=== PATIENT | male | born 1980 | race Caucasian/White ===

== ENCOUNTER 2019-11-11 12:59 | Outpatient (CLI) | payer OTHER, SELFPAY ==
--- NOTE | ~2019-11-11 | XR_ITS ---
XR knee LT 2V 11/11/2019 13:24 Indication: Left knee pain Procedure: 2 views left knee Comparison: No prior studies for comparison. Findings: There is anatomic alignment. No fracture, subluxation or dislocation. No joint space narrow ing. No significant joint effusion. No radiopaque foreign bodies. Impression: 1: No significant bone or joint abnormality. Reviewed, dictated and finalized at location A. Impression: 1: No significant bone or joint abnormality.
[2019-11-11 13:38] LABS: Hematocrit 46.5 % (42.0-52.0); Hemoglobin 16.2 g/dL (14.0-18.0); Mean Corpuscular HGB Conc 34.8 g/dl (32-36); Mean Corpuscular Hemoglobin 29.5 pg (26-34); Mean Corpuscular Volume 84.5 fl (80-100); Mean Platelet Volume 9.5 fl (7.4-10.4); Platelet Count Result 228 k/mm3 (150-375); Red Cell Distribution Width 12.6 % (11.5-14.5); White Blood Count 7.7 K/mm3 (4.5-10.0)
[2019-11-11 13:51] LABS: Blood Urea Nitrogen 19 mg/dL (9-20); Calcium 9.4 mg/dL (8.4-10.2); Carbon Dioxide 29 mmol/L (22-30); Chloride 104 mmol/L (98-107); Estimated Glomerular Filt Rate > 60; Glucose 93 mg/dL (75-110); Potassium 4.3 mmol/L (3.4-5.0); Sodium 139 mmol/L (137-145)
[2019-11-11 14:22] LABS: Thyroid Stimulating Hormone 0.749 uIU/mL (0.465-4.680)
[2019-11-14 10:47] LABS: Testosterone Total 277 ng/dL (250-1100)
== END 2019-11-11 13:00 | disposition home or self-care (01) ==
PROVIDERS: PCP Family Medicine; Visit Provider Physician Assistant Medical
DX: M25.562 Pain in left knee (principal); R53.82 Chronic fatigue, unspecified
CPT/HCPCS: 36415; 73560; 80048; 84403; 84443; 85027

== ENCOUNTER 2020-01-01 10:02 | Outpatient (CLI) | payer OTHER, SELFPAY ==
--- NOTE | ~2020-01-01 | MR_ITS ---
EXAMINATION: MR knee LT wo con DATE: 01/01/2020 10:58 INDICATION: Left knee pain TECHNIQUE: Magnetic resonance imaging (MRI) of the left knee was performed without intravenous contra st. Sequences included coronal PD-weighted FSE, coronal PD-weighted FS FSE, sagittal T2-weighted FSE , sagittal PD-weighted FS FSE and axial PD weighted fat saturated FSE. COMPARISON: None. FINDINGS: Medial compartment: Medial meniscus is normal. Articular cartilage is normal. There is a normal anatomic variant intramen iscal ligament extending from the anterior horn of the medial meniscus across intercondylar notch to the posterior horn of the lateral meniscus. Lateral compartment: Lateral meniscus is normal. Articular cartilage is normal. Patellofemoral compartment: Partial-thickness chondral fissure involving less than 50% the cartilage thickness without degenerati ve subarticular changes at the central aspect of the medial patellar facet. Patellofemoral cartilage is otherwise normal. Ligaments and tendons: Anterior and posterior cruciate ligaments are normal. The medial collateral ligament and fibular carla ateral ligament complex are normal. The extensor mechanism is normal. The visualized medial and later al hamstring tendons as well as the iliotibial band are normal. Fluid: Physiologic amount of fluid in the joint space. No loose osteochondral bodies identified. Small amoun t of fluid in the prepatellar bursa consistent with mild bursitis. Osseous/other: Normal marrow signal. No fracture or pathologic marrow replacing process. There is a medial plical ba nd which extends across the superomedial corner of the medial trochlea. There is mild edema in the ad jacent medial aspect of the superficial suprapatellar fat pad which can be seen with fat pad impingem ent syndrome. IMPRESSION: 1. Small partial-thickness tear at the medial patellar facet. 2. Mild prepatellar bursitis. 3. Mild edema in the medial aspect of the suprapatellar fat pad which could be related to fat pad imp ingement syndrome with an adjacent medial plical band. Reviewed, dictated and finalized at location A. IMPRESSION: 1. Small partial-thickness tear at the medial patellar facet. 2. Mild prepatellar bursitis. 3. Mild edema in the medial aspect of the suprapatellar fat pad which could be related to fat pad impingement syndrome with an adjacent medial plical band.
== END 2020-01-01 10:03 | disposition home or self-care (01) ==
LOC: ANHIMG 10:03
PROVIDERS: PCP Family Medicine; Visit Provider Family Medicine
DX: M70.42 Prepatellar bursitis, left knee (principal)
CPT/HCPCS: 73721

== ENCOUNTER 2020-02-02 13:19 | Outpatient (RCR) | payer OTHER, SELFPAY ==
--- NOTE | 2020-02-02 14:39 | PTOPEVAL ---
PHYSICAL THERAPY EVALUATION AND PLAN OF CARE 02-02-2020 The PT evaluation was completed for the diagnosis of L knee pain. He has good strength and flexibility of L hip and knee. The only activity that replicates his pain is kneeling on his L knee. There is tenderness with palpation over the lateral- inferior patella and inferior patellar tendon. At this time, further PT is not indicated for Matt. He has been educated to perform taping over patella, use of patellar tendon strap, with pain management techniques of ice, over the counter meds and rest PRN. Mr. Heath is to call for any further questions, or if there are changes in the next 4 weeks that require additional assessment. Thank you for referring Matt Heath Jr. to [facility]. Please review, sign, date and return this plan of care REINA. I agree with and certify that the following plan of care is medically necessary. Referring Physician Date Attending Provider: Dr. Tejinder Fofana *PT Outpatient Evaluation Start: 02/02/20 13:44 Document 02/02/20 13:35 PIA (Rec: 02/02/20 14:28 PIA [id number]) Therapy Assessment Status Assessment Status Assessment Status Evaluation Outpatient Past Medical History Past Medical History Source of Past Medical History Patient Neurological History Hx Migraine Yes: varies, up to a few times a month Cardiovascular History Hx Hypertension Yes: have had in past Hx Other Cardiac Disorders Yes: had heart monitor few yr ago some arrhythmia-not serious Respiratory History Hx Asthma Yes: as child Hx Chronic Obstructive Pulmonary Disease Yes: borderline, no treatment (COPD) for it now Gastrointestinal History Hx Gastrointestinal Disorders No Significant History Musculoskeletal History Hx Fractures Yes: hand Hx Other Musculoskeletal Disorders Yes: neck and R shoulder pain, low back pain intermittent Endocrine History Hx Endocrine Disorders No Significant History Evaluation Information Problem Diagnosis L knee pain Onset July 2019 Subjective Information gradual increase in knee pain, Query Text:As Reported By Patient/ doing more kneeling, then Family increased; Diagnostic Tests X-Rays For This Problem Yes: negative MRI For This Problem Yes: pre-patellar tendon bursitis;fat pad impingement syndrome, small partial thickness tear medial patellar facet Previous Treatments Previous Treatments For This Problem no previous PT Prior Level of Function Activity Level (Last 3 Months) 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
--- NOTE | 2020-03-11 14:47 | PCPTNOTE ---
PHYSICAL THERAPY DISCHARGE 03-11-2020 Attending Provider: Apollo Mortensen MD Patient:Matt Heath Jr. Date of :1980 Mr. Heath has not returned for any further treatments since the PT evaluation on 02/02/2020, for the diagnosis of L knee pain. Therefore, he will be discharged at this time. The goals were not assessed. [facility]. Please review, sign, date and return this discharge summary REINA. I have been updated about the patient's current status and I agree with discharge from the above service at this time. Referring Physician Date
== END 2020-03-14 15:13 | disposition home or self-care (01) ==
LOC: ANHPT 13:19
PROVIDERS: PCP Family Medicine; Visit Provider Family Medicine
DX: M25.562 Pain in left knee (principal)
CPT/HCPCS: 97161

== ENCOUNTER 2020-07-21 14:53 | Outpatient (CLI) | payer OTHER, SELFPAY ==
--- NOTE | ~2020-07-21 | XR_ITS ---
XR shoulder LT min 2V DATE: 07/21/2020 15:22 INDICATION: Left shoulder skin anesthesia TECHNIQUE: 4 views of left shoulder COMPARISON: None FINDINGS: No fracture or dislocation, periosteal reaction or bone destruction. Normal alignment at th e acromioclavicular and glenohumeral joints. No abnormal left shoulder soft tissue calcification. 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
--- NOTE | ~2020-07-21 | XR_ITS ---
XR hand RT min 3V DATE: 07/21/2020 15:22 INDICATION: Right hand pain TECHNIQUE: 3 views COMPARISON: None FINDINGS: No fracture or dislocation, periosteal reaction or bone destruction, joint space narrowing, chondrocalcinosis or erosive change is detected. IMPRESSION: Negative Reviewed, dictated and finalized at location B. 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
--- NOTE | ~2020-07-21 | XR_ITS ---
XR hand LT min 3V DATE: 07/21/2020 15:22 INDICATION: Left hand pain TECHNIQUE: 3 views COMPARISON: None FINDINGS: No fracture or dislocation, periosteal reaction or bone destruction. Joint spaces are prese rved. No erosive changes or chondrocalcinosis. IMPRESSION: Negative Reviewed, dictated and finalized at location B. 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
[2020-07-21 16:17] LABS: Uric Acid 4.7 mg/dL (3.5-8.5)
[2020-07-21 16:29] LABS: Erythrocyte Sedimentation Rate 8 mm/hr (0-20)
[2020-07-21 18:50] LABS: Rheumatoid Factor < 8.6 IU/ML (<12)
== END 2020-07-21 14:54 | disposition home or self-care (01) ==
PROVIDERS: PCP Family Medicine; Visit Provider Nurse Practitioner Family
DX: M79.643 Pain in unspecified hand (principal); M25.519 Pain in unspecified shoulder; R20.0 Anesthesia of skin; R20.2 Paresthesia of skin
CPT/HCPCS: 36415; 73030; 73130; 84550; 85652; 86038; 86430

== ENCOUNTER 2020-10-04 10:31 | Outpatient (CLI) | payer OTHER, SELFPAY ==
--- NOTE | ~2020-10-04 | XR_ITS ---
XR_CERV2-3V_CR DATE: 10/04/2020 10:45 INDICATION: Neck pain TECHNIQUE: AP, open-mouth, lateral views COMPARISON: None FINDINGS: There is straightening of the cervical spine. C1 and C2 are normally aligned and the odont oid process is intact. No fracture or dislocation, periosteal reaction or bone destruction is detect ed. No prevertebral soft tissue swelling. The cervical interspaces are preserved. IMPRESSION: Straightening of the cervical spine Reviewed, dictated and finalized at Location A. Reviewed, dictated and finalized at location B.
--- NOTE | ~2020-10-04 | XR_ITS ---
XR elbow LT min 3V DATE: 10/04/2020 10:45 INDICATION: Left elbow pain TECHNIQUE: 4 views COMPARISON: None FINDINGS: No fracture or dislocation or joint effusion. No periosteal reaction or bone destruction. IMPRESSION: Negative Reviewed, dictated and finalized at location B. IMPRESSION: Negative
== END 2020-10-04 10:32 | disposition home or self-care (01) ==
PROVIDERS: PCP Family Medicine; Visit Provider Nurse Practitioner Family
DX: M54.2 Cervicalgia (principal); M25.522 Pain in left elbow
CPT/HCPCS: 72040; 73080

== ENCOUNTER 2020-11-11 17:08 | Outpatient (CLI) | payer OTHER, SELFPAY ==
--- NOTE | ~2020-11-11 | MR_ITS ---
EXAMINATION: MR cervical spine wo con DATE: 11/11/2020 17:49 INDICATION: Anesthesia of skin with pain, numbness and tingling extending down the left arm TECHNIQUE: Magnetic resonance imaging (MRI) of the cervical spine was performed without intravenous c ontrast. Sequences included sagittal T2-weighted FSE, sagittal T2-weighted FS FSE, sagittal T1-weight ed FSE, axial MERGE and axial T2-weighted FSE. COMPARISON: None FINDINGS: Straightening of the normal cervical lordosis. Vertebral body heights are normal. Bone marrow signa l intensity is normal. Intervertebral disc heights are normal. Cord signal intensity is normal. Cervi rohit soft tissues are unremarkable. The following disc levels are specifically discussed: C2-C3: The disc does not extend beyond the endplate margin. There is no uncovertebral joint osteoarth ritis. There is mild left facet joint osteoarthritis. There is minimal left neural foraminal stenosis . There is no central canal stenosis. C3-C4: Disc is bulging. There is mild bilateral uncovertebral joint osteoarthritis. There is mild lef t and minimal right facet joint osteoarthritis. There is mild bilateral neural foraminal stenosis. Th ere is mild central canal stenosis. C4-C5: Disc is bulging. There is moderate bilateral uncovertebral joint osteoarthritis. There is mild to moderate left and mild right facet joint osteoarthritis. There is moderate to severe bilateral ne ural foraminal stenosis. There is mild central canal stenosis. C5-C6: Disc is mildly bulging. There is mild bilateral uncovertebral joint osteoarthritis. There is m ild bilateral facet joint osteoarthritis. There is minimal bilateral neural foraminal stenosis. There is mild central canal stenosis. C6-C7: Disc is mildly bulging. There is minimal bilateral uncovertebral joint osteoarthritis. There i s mild right and minimal left facet joint osteoarthritis. There is minimal left neural foraminal sten osis. There is mild central canal stenosis. C7-T1: Disc is bulging. There is moderate bilateral uncovertebral joint osteoarthritis. There is mild bilateral facet joint osteoarthritis. There is moderate bilateral, left greater than right neural fo raminal stenosis. There is mild central canal stenosis. IMPRESSION: 1. Mild cervical spondylosis most notable for moderate to severe bilateral neural foraminal stenosis at C4-C5. Reviewed, dictated and finalized at location A. IMPRESSION: 1. Mild cervical spondylosis most notable for moderate to severe bilateral neur al foraminal stenosis at C4-C5.
== END 2020-11-11 17:09 | disposition home or self-care (01) ==
LOC: ANHIMG 17:09
PROVIDERS: PCP Family Medicine; Visit Provider Nurse Practitioner Family
DX: R20.0 Anesthesia of skin (principal); R20.2 Paresthesia of skin; R29.898 Other symptoms and signs involving the musculoskeletal system; M47.892 Other spondylosis, cervical region
CPT/HCPCS: 72141

== ENCOUNTER 2020-12-19 15:00 | Outpatient (RCR) | payer OTHER, SELFPAY ==
--- NOTE | 2020-11-21 11:19 | PTOPEVAL ---
PHYSICAL THERAPY EVALUATION Thank you for referring Matt Heath Jr. to [facility].? Maxwell was evaluated for the dx of cervical pain with radiculopathy left arm, left elbow epicondylitis and possible carpal tunnel syndrome.The patient is scheduled to be seen for therapy? 2 x/week for 4 weeks. Please review, sign, date and return this plan of care REINA. I agree with and certify that the following plan of care is medically necessary. Referring Physician Date Attending Provider: Antonette Ledesma NP *PT Outpatient Evaluation Start: 11/21/20 09:47 Freq: Status: Active Protocol: Document 11/21/20 09:47 MLV (Rec: 11/21/20 10:45 MLV [id number]) Therapy Assessment Status Assessment Status Evaluation Evaluation Information Problem Additional Evaluation Detail Patient has had symptoms in his right arm and into his hand that began around 3 months ago. Patient was holding a heavy bucket throwing salt during a snow when he noticed a warm feeling starting in his left arm. The patient now has pain and unable to cruise coordinator well. 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 Patient has limits to any carrying of weight and is sleeping less. Patient has symptoms of tingling and pain at left arm to hand at rest frequently. Patient has a nerve conduction test scheduled in January. Patient currently has no restrictions set by the MD. Diagnostic Tests MRI For This Problem Yes: several bulging disc at cervical spine Pain Assessment Timing of Pain Assessment Timing of Pain Assessment Assessment Pain Scale Pain Scale Used Numeric (1 - 10) Self Report Pain Assessment Left Arm(s) Reported Pain Level 2 Pain Description Aching,Tingling Pain Frequency Acute Other Pain Description with heavier lifting the pain is a 5 Greatest Pain Intensity 10 Pain Aggravating Factors Exercise/Activity,Lifting Pain Score Pain Score 2: Self Report Interventions Used Interventions Used By Clinicians Educatio
--- NOTE | 2020-12-09 09:14 | PCPTNOTE ---
Patient did not show up for scheduled appointment this date. Called patient and he stated he just woke up.
--- NOTE | 2020-12-19 16:49 | PTOPEVAL ---
PHYSICAL THERAPY DISCHARGE Thank you for referring Matt Heath Jr. to [facility].? Maxwell has completed 8 visits for the dx of cervical pain with left arm radiculopathy. The goals have not been met completely and skilled PT peaked. DC PT. Please review, sign, date and return this plan of care REINA. I agree with and certify the following plan of care. Referring Physician Date Attending Provider: Antonette Ledesma NP *PT Outpatient Discharge Start: 11/21/20 09:47 Freq: Status: Active Protocol: Document 12/19/20 15:12 MLV (Rec: 12/19/20 15:55 MLV [id number]) Therapy Assessment Status Assessment Status Assessment Status Discharge Evaluation Information Problem Diagnosis cervical disc changes/ left arm radiculopathy plus left elbow tendonitis Additional Evaluation Detail Patient reports still having left arm numbness which occurs frequently with laying to sleep and driving/ sitting with arm on a table. The patient also has left elbow tenderness and increased pain with work tasks/overuse activities. The patient is compliant with the HEP and use of a wrist splint, but has not felt he has improved because of them. The patient does not have a follow up appt with the MD at this time-PT recommended to call for an appt. Pain Assessment Timing of Pain Assessment Timing of Pain Assessment Assessment Pain Scale Pain Scale Used Numeric (1 - 10) Self Report Pain Assessment Left Arm(s) Reported Pain Level 2 Pain Description Aching,Tingling Other Pain Description 5 with activity or by the end of the day; occasions of 10 remain Pain Score Pain Score 2: Self Report Interventions Used Interventions Used By Clinicians Electrical Stimulation,Heat, Manual Therapy Techniques Pain Relief Interventions Used By Exercise,Inactivity/Rest, Patient Position Change,Splinting Cervical and Lumbar ROM Cervical ROM Cervical Flexion (0-60) 70 Query Text:Active in Degrees Cervical Extension (0-70) 50 Query Text:Active in Degrees Cervical Lateral Flexion Right (0-50) 60 Query Text:Active in Degrees Cervical Lateral Flexion Left (0-50)
== END 2020-12-20 08:31 | disposition home or self-care (01) ==
LOC: ANHPT 15:00
PROVIDERS: PCP Family Medicine; Visit Provider Nurse Practitioner Family
DX: M77.12 Lateral epicondylitis, left elbow (principal); M25.522 Pain in left elbow; M54.2 Cervicalgia; R20.0 Anesthesia of skin; R20.2 Paresthesia of skin; R29.898 Other symptoms and signs involving the musculoskeletal system
CPT/HCPCS: 97012; 97014; 97110; 97140; 97162; G0283

== ENCOUNTER 2021-01-25 10:51 | Outpatient (CLI) | payer OTHER, SELFPAY ==
--- NOTE | 2021-01-25 12:00 | NEURO_ITS ---
Impression: # Complains of left upper extremity numbness. # Mild left Carpal Tunnel Syndrome # No ulnar neuropathy. # Normal needle/EMG exam. Nerve Conduction Studies Anti Sensory Summary Table Stim Site NR Peak (ms) P-T Amp (?V) Site1 Site2 Delta-P (ms) Dist (cm) Dalton (m/s) Left Median Anti Sensory (2-3nd Digit) Wrist 3.3 64.4 Wrist 2-3nd Digit 3.3 14.0 42 Wrist 3.5 41.8 Wrist 2-3nd Digit 3.3 14.0 42 Left Radial Anti Sensory (Base 1st Digit) Wrist 1.7 23.2 Wrist Base 1st Digit 1.7 0.0 Left Ulnar Anti Sensory (5th Digit) Wrist 2.2 50.8 Wrist 5th Digit 2.2 14.0 64 Motor Summary Table Stim Site NR Onset (ms) O-P Amp (mV) Site1 Site2 Delta-0 (ms) Dist (cm) Dalton (m/s) Left Median Motor (Abd Poll Brev) Wrist 3.4 2.8 Elbow Wrist 4.5 26.0 58 Elbow 7.9 5.3 Left Ulnar Motor (Abd Dig Minimi) Wrist 2.0 8.7 A Elbow Wrist 4.8 28.0 58 A Elbow 6.8 6.8 F Wave Studies NR F-Lat (ms) L-R F-Lat (ms) Left Median (Mrkrs) (Abd Poll Brev) 28.18 Left Ulnar (Mrkrs) (Abd Dig Min) 28.77 EMG Side Muscle Nerve Root Ins Act Fibs Amp Dur Recrt Comment Left 1stDorInt Ulnar C8-T1 Nml Nml Nml Nml Nml Left Ext Indicis Radial (Post Int) C7-8 Nml Nml Nml Nml Nml Left Ext Digitorum Radial (Post Int) C7-8 Nml Nml Nml Nml Nml Left BrachioRad Radial C5-6 Nml Nml Nml Nml Nml Left PronatorTeres Median C6-7 Nml Nml Nml Nml Nml Left Abd Poll Brev Median C8-T1 Nml Nml Nml Nml Nml MTDD
== END 2021-01-25 10:52 | disposition home or self-care (01) ==
LOC: ANHNEURO 10:53
PROVIDERS: PCP Family Medicine; Visit Provider Nurse Practitioner Family
DX: R20.0 Anesthesia of skin (principal); G56.02 Carpal tunnel syndrome, left upper limb
CPT/HCPCS: 95886; 95909

== ENCOUNTER 2023-03-30 09:36 | Outpatient (CLI) | payer OTHER, SELFPAY ==
--- NOTE | ~2023-03-30 | MR_ITS ---
MRI of the cervical spine Clinical History: Cervicalgia Technique: Axial T2-weighted and gradient images, and sagittal T1-weighted, T2-weighted, and STIR matt ges were acquired. COMPARISON: 11/11/2020 Findings: There is straightening of the normal cervical lordosis. No fracture or sublocation seen. No suspicious bone marrow signal abnormality seen. At C2-C3, there is no disc bulge or herniation. No spinal canal stenosis, cord compression, or neural foraminal narrowing. At C3-C4, there is minimal disc bulge. No spinal canal stenosis or cord compression. Possible minimal bilateral neural foraminal narrowing. At C4-C5, there is disc osteophyte complex, with mild canal stenosis but no chace cord compression. T here is bilateral neural foraminal narrowing. At C5-C6, there is minimal disc bulge. No spinal canal stenosis or cord compression. Neural foramina are preserved bilaterally. At C6-C7, there is no significant disc bulge or herniation. No spinal canal stenosis, cord compressio n, or neural foraminal narrowing. Paravertebral soft tissues are unremarkable.- Impression: [id number] degenerative spondylosis at C4-C5, as detailed above. Additional minimal degenerative changes, as above. Reviewed, dictated and finalized at location . Impression: [id number] degenerative spondylosis at C4-C5, as detailed above. Additional minimal degenerative changes, as above.
== END 2023-03-30 09:37 | disposition home or self-care (01) ==
PROVIDERS: PCP Family Medicine; Visit Provider Nurse Practitioner Family
DX: M43.02 Spondylolysis, cervical region (principal)
CPT/HCPCS: 72141

== ENCOUNTER 2023-10-05 09:27 | Outpatient (CLI) | payer OTHER, SELFPAY ==
[2023-10-05 10:21] LABS: Anion Gap 5 mmol/L (8-16); Blood Urea Nitrogen 13 mg/dL (9-20); Calcium 9.3 mg/dL (8.4-10.2); Carbon Dioxide 27 mmol/L (22-30); Chloride 107 mmol/L (98-107); Cholesterol 212 mg/dL (0-200); Estimated Glomerular Filt Rate > 60; Glucose 90 mg/dL (65-110); HDL Direct 40 mg/dL; Sodium 139 mmol/L (137-145); Triglycerides 85 mg/dL (<150)
[2023-10-05 10:32] LABS: LDL Cholesterol Direct 142 mg/dL
[2023-10-05 10:50] LABS: Prostate Specific Antigen 0.6 ng/mL (< OR = 4.0); Thyroid Stimulating Hormone 0.767 uIU/mL (0.465-4.680)
[2023-10-12 21:44] LABS: Testosterone Free 56.7 pg/mL (35.0-155.0); Testosterone Total 324 ng/dL (250-1100)
== END 2023-10-05 09:28 | disposition home or self-care (01) ==
PROVIDERS: PCP Family Medicine; Visit Provider Nurse Practitioner Family
DX: Z12.5 Encounter for screening for malignant neoplasm of prostate (principal); R53.82 Chronic fatigue, unspecified; Z13.220 Encounter for screening for lipoid disorders; F41.8 Other specified anxiety disorders; R03.0 Elevated blood-pressure reading, without diagnosis of hypertension
CPT/HCPCS: 36415; 80048; 80061; 84153; 84402; 84403; 84443

== ENCOUNTER 2023-11-25 15:25 | Outpatient (CLI) | payer OTHER, SELFPAY ==
--- NOTE | ~2023-11-25 | US_ITS ---
EXAMINATION: US soft tissue buttock LT DATE: 11/25/2023 15:58 INDICATION: Eye swelling, mass or lump at the left buttock TECHNIQUE: Multiple grayscale and Doppler ultrasound images of the region of concern at the left butt ock were obtained. COMPARISON: None FINDINGS: /Nonspecific 2.4 x 1.9 x 1.2 cm mass at the left buttock which is peripherally hypoechoic with small very hypoechoic, potentially anechoic small central region. This could represent either a solid or th ick walled cystic structure with differential including neoplasm either benign or malignant, abscess, fat necrosis, hematoma or scarring. IMPRESSION: 1. 2.4 x 1.9 x 1.2 cm indeterminate subcutaneous mass at the left buttock region of concern. Would co nsider CT and/or ultrasound-guided biopsy for further evaluation. Reviewed, dictated and finalized at location B. IMPRESSION: 1. 2.4 x 1.9 x 1.2 cm indeterminate subcutaneous mass at the left buttock regio n of concern. Would consider CT and/or ultrasound-guided biopsy for further ta luation.
== END 2023-11-25 15:26 ==
LOC: MICIMG 15:26
PROVIDERS: PCP Nurse Practitioner Adult Health; Visit Provider Nurse Practitioner Adult Health
DX: R22.2 Localized swelling, mass and lump, trunk (principal)
CPT/HCPCS: 76705

== ENCOUNTER 2023-12-06 09:30 | Outpatient (CLI) | payer OTHER, SELFPAY ==
--- NOTE | ~2023-12-06 | CT_ITS ---
EXAMINATION: CT pelvis w con DATE: 12/06/2023 09:58 INDICATION: Left buttock mass TECHNIQUE: Computed tomography (CT) of the pelvis was performed with 100 mL Omnipaque-350 intravenous contrast. Automated exposure control and iterative reconstruction technique were employed.The dose-l ength product was 501.13 mGy-cm. COMPARISON: Ultrasound dated 11/25/2023 FINDINGS: There is fatty infiltration of the first portion of the colon likely related to body habitus. The carlyle endix and visualized portion of the small bowel are normal. Bladder is normal. Small amount of calcif ication within the mildly enlarged prostate which measures 3.9 x 3.0 cm . No free intraperitoneal gas or fluid. No pathologically enlarged pelvic or inguinal lymphadenopathy. Mild osteoarthritis at the bilateral hip, sacroiliac joints and lower lumbar facet joints. There is a 2.8 x 2.4 x 1.2 cm peripherally enhancing lesion along the left side of the inferior glute al cleft with a relatively uniform peripherally enhancing rim with central lower attenuation midway b etween that of simple fluid and muscle. There is mild stranding in the immediately adjacent fat. IMPRESSION: 1. Mild fat stranding surrounding a 2.8 x 2.4 x 1.2 cm rim-enhancing lesion along the left inferior m argin of the gluteal cleft which is most consistent with and statistically most likely to represent a small abscess. Reviewed, dictated and finalized at location A. IMPRESSION: 1. Mild fat stranding surrounding a 2.8 x 2.4 x 1.2 cm rim-enhancing lesion armida ng the left inferior margin of the gluteal cleft which is most consistent with and statistically most likely to represent a small abscess.
[2023-12-06 09:51] LABS: Estimated Glomerular Filt Rate > 60
== END 2023-12-06 09:31 | disposition home or self-care (01) ==
LOC: ANHIMG 09:31
PROVIDERS: PCP Nurse Practitioner Adult Health; Visit Provider Nurse Practitioner Adult Health
DX: R22.2 Localized swelling, mass and lump, trunk (principal)
CPT/HCPCS: 72193; Q9967

== ENCOUNTER 2023-12-17 19:39 | Emergency (ER) | payer OTHER, SELFPAY ==
--- NOTE | 2023-12-17 19:49 | ED.URI ---
HPI - URI/Sore Throat General Chief Complaint: Upper Respiratory Infection Stated Complaint: Cold symptoms Time Seen by Provider: 12/17/23 19:56 Source: patient and RN notes reviewed Mode of arrival: ambulatory Limitations: no limitations History of Present Illness HPI Narrative: 42-year-old male presents with concern for sore throat, cough, nasal congestion drainage started today. He denies fever or sick contacts. Reports he was prescribed Augmentin for pilonidal cyst which she has not started yet. MD elicited complaint: cough and sore throat Related Data Home Medications Medication Instructions Recorded Confirmed testosterone cypionate 200 mg/mL 100 mg IM WEEKLY 12/17/23 12/17/23 intramuscular oil Allergies Allergy/AdvReac Type Severity Reaction Status Date / Time No Known Allergies Allergy Verified 12/17/23 13:02 Review of Systems Review of Systems: CONSTITUTIONAL: Denies malaise, chills, sweats, or fever. EYES: Denies visual changes, redness, or discharge. ENT: Reports rhinorrhea, congestion, and sore throat. CARDIOVASCULAR: Denies chest pain, palpitations, or edema. RESPIRATORY: Reports cough. Denies dyspnea. GASTROINTESTINAL: Denies abdominal pain, nausea, vomiting, diarrhea SKIN: Denies rash or itching. MUSCULOSKELETAL: Denies myalgia. NEUROLOGIC: Denies headache. All systems reviewed & are unremarkable except as noted in HPI and below PMFSH Past Medical History Medical History Abnormal MRI, cervical spine Abnormal NCS (nerve conduction studies) Anxious depression Cervical spondylosis with myelopathy and radiculopathy Exposure to COVID-19 virus Left buttock abscess Left elbow pain Mass of buttock Nodule of finger of right hand Pain of hand Tick bite Tobacco abuse Family History Family History Father Family history of coronary artery disease Acute myocardial infarction Bone spur Cancer Bladder Grandparent Acute myocardial infarction Mother Stenosis of lower extremity artery Hx of cholecystectomy Cerebrovascular accident Sibling Heart disease Obesity Head trauma Anxiety Other Family history of malignant neoplasm Social History Social History Smoking status: Current some day smoker Tobacco type: cigarettes Second hand tobacco smoke exposure: Yes Alcohol intake: former Substance use: current Substance use type: marijuana Other substance usage details: smoke Lack of Transportation: No Lack of Food: Never True Current Housing: I Have Housing Concerned About Future Housing: No Difficulty Paying Gas/Electric Bills: No Difficulty Paying for Meds: No Currently Unemployed: No Education: High School Diploma/GED Difficulty w/ Childcare or Family Care: No Living arrangements: with family Occupation/Education: occupation 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 There is no relevant family history pertinent to the presenting complaint Exam Narrative: GENERAL: Well-appearing, well-nourished, and in no acute distress. HEAD: Normocephalic EYES: PERRLA, conjunctivae clear ENT: Nares clear, clear discharge. Mucous membranes moist. TM pearly vieira with sharp light reflex bilaterally; no tragal tenderness. Oropharynx not erythematous without lesions. Tonsils not enlarged and without exudate, no drooling, no hoarseness, no trismus, uvula midline. NECK: Supple. No lymphadenopathy CHEST: Clear to auscultation, breath sounds equal. No wheezing, rhonchi, rales, or stridor. No respiratory distress, speaks in full sentences. HEART: Regular rate and rhythm. No murmur
[2023-12-17 19:53] VITALS: BP 142/91; PULSE 106; RESP 16; TEMP 36.6; O2SAT 98
[2023-12-17 19:58] VITALS: BP 142/91; PULSE 106; RESP 16; TEMP 36.6; O2SAT 98
== END 2023-12-17 20:06 | disposition home or self-care (01) ==
PROVIDERS: Emergency Provider Nurse Practitioner; PCP Family Medicine
DX: J06.9 Acute upper respiratory infection, unspecified (principal); F17.210 Nicotine dependence, cigarettes, uncomplicated; F12.90 Cannabis use, unspecified, uncomplicated
CPT/HCPCS: 87081; 87880; 99213; G0463

== ENCOUNTER 2024-03-06 03:04 | Emergency (ER) | payer OTHER, SELFPAY ==
--- NOTE | ~2024-03-06 | CT_ITS ---
EXAMINATION: CT brain wo con DATE: 03/06/2024 04:52 INDICATION: Headache. TECHNIQUE: Computed tomography (CT) of the head was performed without intravenous contrast. The mA wa s adjusted according to patient size. Iterative reconstruction technique was employed. The dose-lengt h product was 681.00 mGy-cm. COMPARISON: Head CT 05/25/2006 FINDINGS: There is no intracranial hemorrhage, acute infarction, or abnormal intracranial mass lesion . The ventricles are normal in size. The orbits are normal. There is mild mucosal thickening in the p aranasal sinuses. The mastoid air cells are normal. IMPRESSION: 1. Normal brain. Reviewed, dictated and finalized at location A. IMPRESSION: 1. Normal brain.
--- NOTE | ~2024-03-06 | CT_ITS ---
EXAMINATION: CT cervical spine wo con DATE: 03/06/2024 04:52 INDICATION: Neck pain. TECHNIQUE: Computed tomography (CT) of the cervical spine was performed without intravenous contrast. Automated exposure control and iterative reconstruction technique were employed. The dose-length pro duct was 466.24 mGy-cm. COMPARISON: CT cervical spine 05/25/2006 FINDINGS: There is mild emphysema. There is kyphosis of cervical spine. There is mild chronic anterio r wedging of T1 vertebral body. There is mildly decreased disc height at C5-C6 and severely decreased disc height at C7-T1. The following disc levels are specifically discussed: C2-C3: There is no uncovertebral joint osteoarthritis. There is moderate bilateral facet joint osteoa rthritis. There is mild left neural foraminal stenosis. There is no central canal stenosis. C3-C4: There is mild bilateral uncovertebral joint osteoarthritis. There is mild bilateral facet join t osteoarthritis. There is mild right neural foraminal stenosis. There is no central canal stenosis. C4-C5: There is severe bilateral uncovertebral joint osteoarthritis. There is severe bilateral facet joint osteoarthritis. There is mild bilateral neural foraminal stenosis. There is mild central canal stenosis. C5-C6: There is mild bilateral uncovertebral joint osteoarthritis. There is moderate right and severe left facet joint osteoarthritis. There is mild bilateral neural foraminal stenosis. There is mild ce ntral canal stenosis. C6-C7: There is no uncovertebral joint osteoarthritis. There is severe right and moderate left facet joint osteoarthritis. There is mild right neural foraminal stenosis. There is no central canal stenos is. C7-T1: There is moderate right and severe left uncovertebral joint osteoarthritis. There is severe ri ght and moderate left facet joint osteoarthritis. There is mild bilateral neural foraminal stenosis. There is mild central canal stenosis. IMPRESSION: 1. Severe cervical spondylosis. Reviewed, dictated and finalized at location A.
--- NOTE | 2024-03-06 04:47 | ED.GENADULT ---
HPI - General Adult General Chief complaint: Headache History of Present Illness HPI narrative: patient is a 43-year-old gentleman who presents emergency department with chief complaint of headache patient reports that he has history of chronic neck pain also had migraines before in the past reports for the last couple of days he has had a headache photophobia nausea patient reports he tried taking his Xanax has taken ibuprofen multiple doses and has taken Tylenol as well patient reports symptoms are not improved by anything reports the pain does radiate down his head into the left side of his neck patient reports that the pain is sharp denies change in mental status denies weakness in the arms or legs Related Data Home Medications Medication Instructions Recorded Confirmed testosterone cypionate 200 mg/mL 100 mg IM WEEKLY 12/17/23 02/04/24 intramuscular oil Allergies Allergy/AdvReac Type Severity Reaction Status Date / Time No Known Allergies Allergy Verified 02/04/24 15:18 Review of Systems Review of Systems: A 10 system review of systems was completed on the patient and is negative except for what is stated in the HPI. Nursing and ancillary documentation was reviewed. PENDING SALE TO [facility] Past Medical History Medical History Abnormal MRI, cervical spine Abnormal NCS (nerve conduction studies) Anxious depression Cervical spondylosis with myelopathy and radiculopathy Exposure to COVID-19 virus Left buttock abscess Left elbow pain Mass of buttock Nodule of finger of right hand Pain of hand Tick bite Tobacco abuse Family History Family History Father Family history of coronary artery disease Acute myocardial infarction Bone spur Cancer Bladder Grandparent Acute myocardial infarction Mother Stenosis of lower extremity artery Hx of cholecystectomy Cerebrovascular accident Sibling Heart disease Obesity Head trauma Anxiety Other Family history of malignant neoplasm Social History Social History Smoking status: Current some day smoker Tobacco type: cigarettes Second hand tobacco smoke exposure: Yes Alcohol intake: former Substance use: current Substance use type: marijuana Other substance usage details: smoke Lack of Transportation: No Lack of Food: Never True Current Housing: I Have Housing Concerned About Future Housing: No Difficulty Paying Gas/Electric Bills: No Difficulty Paying for Meds: No Currently Unemployed: No Education: High School Diploma/GED Difficulty w/ Childcare or Family Care: No Living arrangements: with family Occupation/Education: occupation 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 Gender identity (if verbalized by the patient): Male Exam Narrative: GENERAL: Well-appearing, well-nourished, and in no acute distress. HEAD: Normocephalic, atraumatic. EYES: PERRLA and EOMI. ENT: Nares clear, no rhinorrhea or epistaxis. Mucous membranes moist. NECK: Supple. CHEST: Clear to auscultation. No respiratory distress. HEART: Regular rate and rhythm. No murmur heard. Normal peripheral pulses. ABDOMEN: Soft, nontender, nondistended, normal active bowel sounds. EXTREMITIES: Normal range of motion. No edema. SKIN: Warm, dry, no rash. NEURO: No focal deficits. Alert and oriented x3. PSYCH: Normal mood and affect. Course Vital Signs Vital signs: Vital Signs Temperature 36.5 C 03/06/24 04:48 Pulse Rate 87 03/06/24 04:48 Respiratory Rate 16 03/06/24 04:48 Blood Pressure 160/105 H 03/06/24 04:48 Pulse Oximetry 100 03/06/24 04:48 Temperature 36.6 C 03/06/24 06:23 Pulse Rate 82 03/06/24 06:23 Respiratory Rate 16 03/06/24 06:23 Blood Pressure 156/
[2024-03-06 04:48] VITALS: BP 160/105; PULSE 87; RESP 16; TEMP 36.5; O2SAT 100
[2024-03-06 04:55] LABS: Basophils Absolute Auto 0.1 K/mm3 (0.0-0.1); Basophils Percent Auto 0.6 % (0.2-1.2); Eosinophils Absolute Auto 0.3 K/mm3 (0-0.3); Eosinophils Percent Auto 2.6 % (0-4.4); Hematocrit 52.9 % (42.0-52.0); Immature Granulocyte Absolute 0.03 K/mm3 (0.00-0.031); Immature Granulocyte Percent A 0.3 % (0-0.5); Lymphocytes Absolute Auto 2.86 K/mm3 (0.9-3.2); Lymphocytes Percent Auto 27.8 % (18.3-44.2); Mean Corpuscular Volume 85.2 fl (80-100); Mean Platelet Volume 9.7 fl (7.4-10.4); Monocytes Absolute Auto 0.8 K/mm3 (0.1-0.6); Neutrophils Absolute Auto 6.2 K/mm3 (1.3-6.7); Neutrophils Percent Auto 60.7 % (45.5-73.1); Platelet Count Result 241 k/mm3 (150-375); Red Blood Count 6.21 M/mm3 (4.6-6.20); Red Cell Distribution Width 13.3 % (11.5-14.5); White Blood Count 10.3 K/mm3 (4.5-10.0)
[2024-03-06 05:09] LABS: Alanine Aminotransferase 18 U/L (6-50); Albumin Level 4.1 g/dL (3.5-5.1); Alkaline Phosphatase 78 U/L (38-126); Anion Gap 9 mmol/L (4-12); Aspartate Amino Transferase 26 U/L (17-59); Blood Urea Nitrogen 20 mg/dL (9-20); Calcium 8.8 mg/dL (8.4-10.2); Carbon Dioxide 29 mmol/L (22-30); Chloride 101 mmol/L (98-107); Estimated Glomerular Filt Rate > 60; Glucose 135 mg/dL (65-110); Potassium 3.9 mmol/L (3.4-5.0); Sodium 139 mmol/L (137-145)
[2024-03-06 06:23] VITALS: BP 156/101; PULSE 82; RESP 16; TEMP 36.6; O2SAT 97
== END 2024-03-06 06:54 | disposition home or self-care (01) ==
PROVIDERS: Emergency Provider Emergency Medicine; PCP Family Medicine
DX: G43.909 Migraine, unspecified, not intractable, without status migrainosus (principal); F17.210 Nicotine dependence, cigarettes, uncomplicated
CPT/HCPCS: 36415; 70450; 72125; 80053; 85025; 99284

== ENCOUNTER 2024-03-20 11:16 | Emergency (ER) | payer OTHER, SELFPAY ==
--- NOTE | ~2024-03-20 | XR_ITS ---
EXAMINATION: XR lumbar spine 2-3V DATE: 03/20/2024 12:12 INDICATION: 2 days of back pain TECHNIQUE: Anteroposterior and lateral views of the lumbar spine, and cone-down lateral view of the l umbosacral junction were obtained. COMPARISON: None. FINDINGS: 8 degree lumbar dextrocurvature. Sagittal alignment is normal. Vertebral body heights are normal. Mil d disc height loss at L2-L3. Remaining disc heights are normal. There is multilevel mild to moderate lumbar facet osteoarthritis. Visualized portion of the lung bases are clear. IMPRESSION: 1. 8 degrees lumbar dextrocurvature with mild spondylosis. Reviewed, dictated and finalized at location A.
[2024-03-20 11:41] VITALS: BP 144/100; PULSE 102; RESP 18; TEMP 36.4; O2SAT 98
--- NOTE | 2024-03-20 11:52 | ED.BACK ---
HPI - Back Pain/Injury General Chief Complaint: Back Pain/Injury Stated Complaint: Back pain Time Seen by Provider: 03/20/24 11:52 Source: patient Mode of arrival: ambulatory Limitations: no limitations History of Present Illness HPI Narrative: 43 yo M presents with c/o low back pain, worse to L side. Pain started while digging in the ground. Thinks he may have hit a tree root. 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 Back spasms with movement. Takes flexeril daily for upper back pain. Ambulatory with steady gait. No numbness or tingling to lower extremities. No loss of bowel or bladder. All systems reviewed and negative except as noted above. Related Data Home Medications Medication Instructions Recorded Confirmed testosterone cypionate 200 mg/mL 100 mg IM WEEKLY 12/17/23 03/20/24 intramuscular oil Allergies Allergy/AdvReac Type Severity Reaction Status Date / Time No Known Allergies Allergy Verified 03/20/24 11:39 Review of Systems Review of Systems: CONSTITUTIONAL: Denies fever, chills, or sweats. EYES: Denies visual changes, redness, or discharge. ENT: Denies rhinorrhea, congestion, sore throat, or otalgia. CARDIOVASCULAR: Denies chest pain, palpitations, or edema. RESPIRATORY: Denies cough or dyspnea. GASTROINTESTINAL: Denies abdominal pain, nausea, vomiting, or diarrhea. GENITOURINARY: Denies dysuria or hematuria. SKIN: Denies rash or itching. MUSCULOSKELETAL: Reports low back pain. Denies joint pain, or myalgia. NEUROLOGIC: Denies headache, numbness, or weakness. PSYCHIATRIC: Denies anxiety or depression. All other systems reviewed are negative, except as documented in HPI. [facility] Past Medical History Medical History Abnormal MRI, cervical spine Abnormal NCS (nerve conduction studies) Anxious depression Cervical spondylosis with myelopathy and radiculopathy Exposure to COVID-19 virus Left buttock abscess Left elbow pain Mass of buttock Nodule of finger of right hand Pain of hand Tick bite Tobacco abuse Family History Family History Father Family history of coronary artery disease Acute myocardial infarction Bone spur Cancer Bladder Grandparent Acute myocardial infarction Mother Stenosis of lower extremity artery Hx of cholecystectomy Cerebrovascular accident Sibling Heart disease Obesity Head trauma Anxiety Other Family history of malignant neoplasm Social History Social History Smoking status: Current some day smoker Tobacco type: cigarettes Second hand tobacco smoke exposure: Yes Alcohol intake: former Substance use: current Substance use type: marijuana Other substance usage details: smoke Lack of Transportation: No Lack of Food: Never True Current Housing: I Have Housing Concerned About Future Housing: No Difficulty Paying Gas/Electric Bills: No Difficulty Paying for Meds: No Currently Unemployed: No Education: High School Diploma/GED Difficulty w/ Childcare or Family Care: No Living arrangements: with family Occupation/Education: occupation 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 There is no relevant family history pertinent to the presenting complaint. Exam Narrative: GENERAL: This is a well-nourished, well-developed patient, in no apparent distress. HEAD: normocephalic, atraumatic. EYES: PERRL. Sclera clear/white. Vision is grossly intact. EARS: External ears normal, auditory canals clear and without drainage, TMs normal without perforation. Hearing grossly intact. NOSE: External nose normal with no obvious nasal dischar
== END 2024-03-20 12:44 | disposition home or self-care (01) ==
PROVIDERS: Emergency Provider Nurse Practitioner Family; PCP Family Medicine
DX: S39.012A Strain of muscle, fascia and tendon of lower back, initial encounter (principal); X50.3XXA Overexertion from repetitive movements, initial encounter; Y93.H1 Activity, digging, shoveling and raking; M47.12 Other spondylosis with myelopathy, cervical region; M47.22 Other spondylosis with radiculopathy, cervical region; F17.210 Nicotine dependence, cigarettes, uncomplicated
CPT/HCPCS: 72100; 99213; G0463

== ENCOUNTER 2024-06-22 08:53 | Outpatient (CLI) | payer OTHER, SELFPAY ==
--- NOTE | ~2024-06-22 | US_ITS ---
COMPLETE ABDOMINAL ULTRASOUND Ordering provider: SEAN Espinoza History: . R10.9 - Unspecified abdominal pain . Comparison: None. FINDINGS: LIVER: Normal size and echotexture. No focal hepatic lesions or perihepatic fluid collections are mark ntified. Normal portal vein flow. GALLBLADDER: Unremarkable. No evidence for stones, sludge, gallbladder wall thickening or pericholecy stic fluid collections. A negative sonographic Newman's sign was noted. BILIARY DUCTS: No evidence for intra or extrahepatic biliary dilation. Common bile duct measures 4 mm in diameter which is within normal limits. PANCREAS: Not demonstrated. SPLEEN: Normal size, echotexture and contour and measures 11.2 cm in length. KIDNEYS: Right measures 12.5x 4.2x 4.1 cm in length and the left 10.9x 5.1x 6 cm in length. There is no evidence for hydronephrosis, solid renal mass, renal calculi or perinephric fluid collections. No renal cysts. UPPER ABDOMINAL AORTA: Normal in caliber. Proximal measures 12 CNM. IVC: Patent. FREE FLUID: None. IMPRESSION: Unremarkable complete ultrasound of the abdomen. Reviewed, dictated and finalized at location A. 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
== END 2024-06-22 08:54 | disposition home or self-care (01) ==
LOC: GOSHIMG 08:55
PROVIDERS: PCP Family Medicine; Visit Provider Nurse Practitioner Family
DX: R10.9 Unspecified abdominal pain (principal); R79.89 Other specified abnormal findings of blood chemistry; I10 Essential (primary) hypertension; R20.2 Paresthesia of skin
CPT/HCPCS: 76700

== ENCOUNTER 2024-06-22 09:12 | Outpatient (CLI) | payer OTHER, SELFPAY ==
[2024-06-22 19:37] LABS: Hematocrit 52.9 % (42.0-52.0); Hemoglobin 18.2 g/dL (14.0-18.0); Mean Corpuscular HGB Conc 34.4 g/dl (32-36); Mean Corpuscular Hemoglobin 29.7 pg (26-34); Mean Corpuscular Volume 86.3 fl (80-100); Mean Platelet Volume 10.2 fl (7.4-10.4); Platelet Count Result 219 k/mm3 (150-375); Red Blood Count 6.13 M/mm3 (4.6-6.20); Red Cell Distribution Width 13.7 % (11.5-14.5); White Blood Count 8.4 K/mm3 (4.5-10.0)
[2024-06-22 20:03] LABS: Alanine Aminotransferase 16 U/L (6-50); Albumin Level 3.9 g/dL (3.5-5.1); Alkaline Phosphatase 72 U/L (38-126); Anion Gap 2 mmol/L (4-12); Aspartate Amino Transferase 36 U/L (17-59); Bilirubin,Total 1.2 mg/dL (0.2-1.3); Blood Urea Nitrogen 14 mg/dL (9-20); Calcium 8.8 mg/dL (8.4-10.2); Carbon Dioxide 28 mmol/L (22-30); Chloride 107 mmol/L (98-107); Cholesterol 171 mg/dL (0-200); Estimated Glomerular Filt Rate > 60; Glucose 95 mg/dL (65-110); HDL Direct 39 mg/dL; Potassium 4.5 mmol/L (3.4-5.0); Sodium 137 mmol/L (137-145); Triglycerides 87 mg/dL (<150)
[2024-06-22 20:17] LABS: LDL Cholesterol Direct 105 mg/dL
[2024-06-22 20:18] LABS: Hemoglobin A1C 5.5 % (<5.7)
[2024-06-27 14:49] LABS: Testosterone Free 205.6 pg/mL (35.0-155.0); Testosterone Total 819 ng/dL (250-1100)
== END 2024-06-22 09:13 | disposition home or self-care (01) ==
LOC: ANHGOSHLAB 09:14
PROVIDERS: PCP Family Medicine; Visit Provider Nurse Practitioner Family
DX: R79.89 Other specified abnormal findings of blood chemistry (principal); I10 Essential (primary) hypertension
CPT/HCPCS: 36415; 80053; 80061; 83036; 84402; 84403; 85027

== ENCOUNTER 2024-06-29 15:29 | Outpatient (CLI) | payer OTHER, SELFPAY ==
--- NOTE | 2024-06-29 15:37 | ECG_ITS ---
Test Date: 2024-06-29 15:58:07 Measurements Intervals [place] Rate: 77 P: 66 MA: 143 QRS: 52 QRSD: 90 T: 48 QT: 335 QTc: 381 Interpretive Statements SINUS RHYTHM No previous ECG available for comparison Electronically Signed On 06-29-2024 21:22:53 [employer]UNDR[employer] AGENT by Felipe Sinha M.D.
[2024-06-29 16:16] LABS: Add Urine Microscopic? NO; Appearance Urine Clear (Clear); Bilirubin Urine Negative (Negative); Blood Urine Negative (Negative); Color Urine Yellow (Yellow); Glucose Urine UA Negative (Negative); Ketones Urine Negative (Negative); Leukocyte Esterase Ur Negative LEU/UL (Negative); Nitrate Urine Negative (Negative); Protein Urine Negative (Negative); Specific Grav Ur 1.018 (1.001-1.035)
== END 2024-06-29 15:30 | disposition home or self-care (01) ==
LOC: ANHLAB 15:31
PROVIDERS: PCP Family Medicine; Visit Provider Nurse Practitioner Family
DX: R10.9 Unspecified abdominal pain (principal); R79.89 Other specified abnormal findings of blood chemistry; I10 Essential (primary) hypertension; R20.2 Paresthesia of skin
CPT/HCPCS: 81003; 93005

== ENCOUNTER 2024-08-27 14:32 | Outpatient (CLI) | payer OTHER, SELFPAY ==
--- NOTE | ~2024-08-27 | MR_ITS ---
EXAMINATION: MR cervical spine wo/w con DATE: 08/27/2024 15:28 INDICATION: Other spondylosis. TECHNIQUE: Magnetic resonance imaging (MRI) of the cervical spine was performed without and with 17 m L MultiHance intravenous contrast. COMPARISON: Cervical spine MRI 03/30/2023 FINDINGS: Alignment is normal. There is mild chronic anterior wedging of T1 vertebral body. There is mildly decreased disc height at C7-T1. The spinal cord signal intensity is normal. The following disc levels are specifically discussed: C2-C3: The disc does not extend beyond the endplate margin. There is no uncovertebral joint osteoarth ritis. There is moderate bilateral facet joint osteoarthritis. There is mild left neural foraminal st enosis. There is no central canal stenosis. C3-C4: There is a central extrusion. There is moderate right and mild left uncovertebral joint osteoa rthritis. There is moderate bilateral facet joint osteoarthritis. There is mild bilateral neural fora clifton stenosis. There is mild central canal stenosis. C4-C5: The disc is bulging. There is moderate bilateral uncovertebral joint osteoarthritis. There is severe bilateral facet joint osteoarthritis. There is moderate bilateral neural foraminal stenosis. T here is mild central canal stenosis. C5-C6: There is a central protrusion. There is mild bilateral uncovertebral joint osteoarthritis. The re is severe bilateral facet joint osteoarthritis. There is mild bilateral neural foraminal stenosis. There is mild central canal stenosis. C6-C7: There is a central protrusion. There is mild bilateral uncovertebral joint osteoarthritis. The re is severe bilateral facet joint osteoarthritis. There is mild bilateral neural foraminal stenosis. There is mild central canal stenosis. C7-T1: There is a central extrusion. There is severe right and moderate left uncovertebral joint oste oarthritis. There is severe bilateral facet joint osteoarthritis. There is mild bilateral neural fora clifton stenosis. There is mild central canal stenosis. IMPRESSION: 1. Moderate cervical spondylosis, stable from 03/30/2023. Reviewed, dictated and finalized at location A. [facility]
--- OUTSIDE RECORDS SUMMARY | 2024-08-27 14:38 | XMS_ITS | Patient Health Summary ---
Author Organization [facility] [employer] Address [address] [place] [address] Care Team Providers Care Skating Rink Ice Maker Name Role Phone Unavailable Primary Care Provider Unavailabl e Note from [facility] [employer],non-owned Affiliates and Associated Physician Practices is amultiple site organization consisting of ambulatory clinics and hospital sitesin [place], [place], [place] and [place]. This disclosure is being madepursuant to the Care Everywhere program and may not contain all information available regarding this patient. Last updated 18.[facility] Allergies No known active allergies Medications * Be aware that medications may not be up to date on this document. Alwaysverify current medications with the patient. * methylPREDNISolone (MEDROL DOSEPAK) 4 MG tablet(Started 02/20/2014) Take by mouth as directed. Social History Tobacco Use Types Packs/Day Years Used Date Smoking Tobacco: Every Day Alcohol Use Standard Drinks/Week Comments No 0 (1 standard drink = 0.6 oz pur e alcohol) Sex and Gender Information Value Date Recorded Sex Assigned at Not on file Gender Identity Not on file Sexual Orientation Not on file Last Filed Vital Signs Vital Sign Reading Time Taken Comments Blood Pressure 140/86 02/20/2014 5:27 PM CDT Pulse 88 02/20/2014 5:27 PM CDT Temperature 36.9 C (98.5 F) 02/20/2014 12:58 PM CDT Respiratory Rate 20 02/20/2014 12:58 PM CDT Oxygen Saturation 99% 02/20/2014 12:58 PM CDT Inhaled Oxygen Concentration - - Weight 77.1 kg (170 lb) 02/20/2014 12:58 PM CDT Height - - Body Mass Index - - Procedures * URINALYSIS REFLEX MICROSCOPIC REFLEX CULTURE(Performed 02/20/2014) * CULTURE BLOOD(Performed 02/20/2014) * PT PTT PANEL(Performed 02/20/2014) * ERYTHROCYTE SEDIMENTATION RATE(Performed 02/20/2014) * COMPREHENSIVE METABOLIC PANEL(Performed 02/20/2014) * CBC W AUTO DIFFERENTIAL(Performed 02/20/2014) * CULTURE BLOOD(Performed 02/20/2014) * XR CHEST 2VW(Performed 02/20/2014) Performed for Fever Results * URINALYSIS ROUTINE W/REFLEX TO CULTURE (02/20/2014 4:21 PM CDT) Color UA Yellow Straw, Yellow, Dark Yellow 02/20/2014 4:45 PM CDT [facility] Clarity UA Clear 02/20/2014 4:45 PM CDT [facility] Specific [place] UA 1.023 1.005 - 1.030 02/20/2014 4:45 PM CDT [facility] pH UA 6.0 5.0 - 8.0 pH 02/20/2014 4:45 PM CDT [facility] Protein UA Negative Negative 02/20/2014 4:45 PM CDT [facility] Blood UA Negative Negative 02/20/2014 4:45 PM CDT [facility] Leukocyte UA Negative Negative 02/20/2014 4:45 PM CDT [facility] Nitrite UA Negative Negative 02/20/2014 4:45 PM CDT [facility] Glucose UA Negative Negative 02/20/2014 4:45 PM CDT [facility] Ketone UA Negative Negative 02/20/2014 4:45 PM CDT [facility] Bilirubin UA Negative Negative 02/20/2014 4:45 PM CDT [facility] Urobilinogen UA 0.2 0.1 - 1.0 EU/dL 02/20/2014 4:45 PM CDT [facility] Reflex Status Culture not indicated 02/20/2014 4:45 PM CDT [facility] Urine URINE SPECIMEN OBTAINED BY CLEAN CATCH PROCEDURE / Unknown 02/20/2014 4:21 PM CDT 02/20/2014 4:32 PM CDT Chacha Bernal PA-C LAB - URINALYSIS OR DERABLES [facility] [address] [place] [address] * CULTURE BLOOD (02/20/2014 3:10 PM CDT) Only the most recent of2 resultswithin the time period is included. Pathologist [facility] [place] Culture No Growth SAMARA 02/26/2014 4:51 AM CDT [facility] Blood PERIPHERAL BLOOD / Unknown 02/20/2014 3:10 PM CDT 02/20/2014 3:14 PM CDT Chacha JAQUEZC LAB - MICROBIOLOGY ORDERABLES Performing Organization Address [facility] Co de Phone Number [facility] [address] [place] [address], [facility] * PT PTT PANEL (02/20/2014 3:02 PM CDT) Pathologist [facility] PT 10.0 9.4 - 11.2 sec 02/20/2014 3:33 PM CDT [facility] INR 0.95 0.9 - 1.1 02/20/2014 3:33 PM CDT [facility] PTT 28.1 24.0 - 32.0 sec 02/20/2014 3:33 PM CDT [facility] Blood BLOOD SPECIMEN / Unknown 02/20/2014 3:02 PM CDT 02/20/2014 3:10 PM CDT Narrative [facility] - 02/20/2014 3:33 PM CDT Conventional Anticoagulant Therapy INR Reference Ranges: 2.0-3.0 Intensive Anticoagulant Therapy INR Reference Ranges: 2.5-3.5 Chacha GAFFNEY-C LAB - COAGULATION O RDERABLES Performing Organization Address [facility] Co de Phone Number [facility] [address] [place] [address] * SED RATE WESTERGREN (02/20/2014 3:02 PM CDT) Pathologist [facility] Erythrocyte Sedimentation Rate Westergren 10 0 - 15 mm/hr 02/20/2014 4:07 PM CDT [facility] Blood BLOOD SPECIMEN / Unknown 02/20/2014 3:02 PM CDT 02/20/2014 3:10 PM CDT Chacha Benral PA-C LAB - HEMATOLOGY OR DERABLES [facility] [address] [place] [address] * (ABNORMAL) CBC W AUTO DIFFERENTIAL (02/20/2014 3:02 PM CDT) WBC 9.3 4.4 - 10.7 x10^9/L 02/20/2014 3:21 PM CDT [facility] RBC 5.05 3.80 - 5.40 x10^12/L 02/20/2014 3:21 PM CDT [facility] Hemoglobin 15.3 12.0 - 17.6 gm/dL 02/20/2014 3:21 PM CDT [facility] Hematocrit 42.1 35.2 - 51.7 % 02/20/2014 3:21 PM CDT [facility] MCV 83.4 80.7 - 98.3 fl 02/20/2014 3:21 PM CDT [facility] MCH 30.3 26.7 - 34.0 pg 02/20/2014 3:21 PM CDT [facility] MCHC 36.3(H) 30.8 - 35.9 gm/dL 02/20/2014 3:21 PM CDT [facility] Platelet Count 187 153 - 416 x10^9/L 02/20/2014 3:21 PM CDT [facility] RDW-CV 12.5 12.1 - 14.9 % 02/20/2014 3:21 PM CDT [facility] MPV 9.3(L) 9.4 - 12.9 fl 02/20/2014 3:21 PM CDT [facility] Neutrophils % 67.8 44.0 - 73.0 % 02/20/2014 3:21 PM CDT [facility] Lymphocytes % 21.6 20.0 - 43.0 % 02/20/2014 3:21 PM CDT [facility] Monocytes % 7.7 5.0 - 13.0 % 02/20/2014 3:21 PM CDT [facility] Eosinophils % 2.2 0.0 - 6.0 % 02/20/2014 3:21 PM CDT [facility] Basophils % 0.4 0.0 - 2.0 % 02/20/2014 3:21 PM CDT [facility] Immature Granulocytes 0.3 0 - 1 % 02/20/2014 3:21 PM CDT [facility] Neutrophil Absolute 6.29 2.01 - 7.14 x10^9/L 02/20/2014 3:21 PM CDT [facility] Lymphocytes Absolute 2.00 1.07 - 3.94 x10^9/L 02/20/2014 3:21 PM CDT [facility] Monocytes Absolute 0.71 0.26 - 1.07 x10^9/L 02/20/2014 3:21 PM CDT [facility] Eosinophils Absolute 0.20 0 - 0.47 x10^9/L 02/20/2014 3:21 PM CDT [facility] Basophils Absolute 0.04 0 - 0.08 x10^9/L 02/20/2014 3:21 PM CDT [facility] Immature Granulocytes Absolute 0.03 0.00 - 0.06 x10^9/L 02/20/2014 3:21 PM CDT [facility] Blood BLOOD SPECIMEN / Unknown 02/20/2014 3:02 PM CDT 02/20/2014 3:10 PM CDT Chacha Bernal PA-C LAB - HEMATOLOGY OR DERABLES [facility] [address] [place] [address] * COMPREHENSIVE METABOLIC PANEL (02/20/2014 3:02 PM CDT) Glucose 83 74 - 106 mg/dL 02/20/2014 3:30 PM CDT [facility] Sodium 137 136 - 145 mmol/L 02/20/2014 3:30 PM CDT [facility] Potassium 3.6 3.5 - 5.1 mmol/L 02/20/2014 3:30 PM CDT [facility] Chloride 104 98 - 107 mmol/L 02/20/2014 3:30 PM CDT [facility] CO2 28 22 - 31 mmol/L 02/20/2014 3:30 PM CDT [facility] Calcium 8.8 8.5 - 10.1 mg/dL 02/20/2014 3:30 PM CDT [facility] Anion Gap 5 5 - 15 mmol/L 02/20/2014 3:30 PM CDT [facility] BUN 16 7 - 21 mg/dL 02/20/2014 3:30 PM CDT [facility] Creatinine 0.69 0.50 - 1.30 mg/dL 02/20/2014 3:30 PM CDT [facility] eGFR by MDRD >60 >60 mL/min/1.7 3m2 02/20/2014 3:30 PM CDT [facility] eGFR by MDRD >60 >60 mL/min/1.7 3m2 02/20/2014 3:30 PM CDT [facility] Alkaline Phosphatase 104 38 - 126 U/L 02/20/2014 3:30 PM CDT [facility] ALT 37 12 - 78 U/L 02/20/2014 3:30 PM CDT [facility] AST 17 5 - 40 U/L 02/20/2014 3:30 PM CDT [facility] Protein Total 7.7 6.4 - 8.2 gm/dL 02/20/2014 3:30 PM CDT [facility] Albumin 3.9 3.4 - 5.0 gm/dL 02/20/2014 3:30 PM CDT [facility] Bilirubin Total 0.8 0.2 - 1.0 mg/dL 02/20/2014 3:30 PM CDT [facility] Blood BLOOD SPECIMEN / Unknown 02/20/2014 3:02 PM CDT 02/20/2014 3:10 PM CDT Chacha Bernal PA-C LAB - CHEMISTRY ORD ERABLES [facility] [address] [place] [address] * CXR - PA & LATERAL (02/20/2014 2:16 PM CDT) Anatomical Region Laterality Modality Chest Radiographic Cecille ging 02/20/2014 2:24 PM CDT Narrative 02/20/2014 2:24 PM CDT Chest Two Views History: Chest pain Findings: No priors available. The heart size is normal and the lungs are clear and no pneumothorax or pleural effusion is seen. Procedure Note Toi Shafer MD - 02/20/2014 Chest Two Views History: Chest pain Findings: No priors available. The heart size is normal and the lungs are clear and no pneumothorax or pleural effusion is seen. Chacha Bernal PA-C DIAGNOSTIC IMAGING ORDERABLES
--- OUTSIDE RECORDS SUMMARY | 2024-08-27 14:38 | XMS_ITS | Clinical Summary ---
Author Organization [facility] Address [address] [place] [address] Care Team Providers Care Court Deputy Name Role Phone Unavailable Primary Care Provider Unavailabl e Source Comments [facility] [employer],non-owned Affiliates and Associated Physician Practices is amultiple site organization consisting of ambulatory clinics and hospital sitesin [place], [place], [place] and [place]. This disclosure is being madepursuant to the Care Everywhere program and may not contain all information available regarding this patient. Last updated 18.[facility] [employer] Allergies No known active allergies Medications * Be aware that medications may not be up to date on this document. Alwaysverify current medications with the patient. Medication Sig Dispensed Refills Start Date End Date Status methylPREDNISolone (MEDROL DOSEPAK) 4 MG tablet Take by mouth as directed. 21 Packet 0 02/20/2014 Active Social History Tobacco Use Types Packs/Day Years [...] - - Body Mass Index - - Plan of Treatment Health Maintenance Due Date Last Done Comments LIPID TESTING 1981 HIV SCREENING 1996 HEPATITIS C SCREENING 12/25/1999 DTAP/TDAP/TD VACCINES (1 - Tdap) 2000 HEPATITIS B VACCINE (1 of 3 - 19+ 3-dose series) 2000 PNEUMOCOCCAL VACCINE (1 of 2 - PCV) 2000 COVID-19 VACCINE (1 - 2023-2 5 season) 2024 INFLUENZA VACCINE (#1) 2024 DEPRESSION SCREENING 07/15/2024 ZOSTER VACCINE (1 of 2) 12/30/2031 HIB VACCINE Aged Out No longer eligi ble based on patient's age to complete this topic HPV VACCINE Aged Out No longer eligi ble based on patient's age to complete this topic MENINGOCOCCAL (Group B) VACCINE Aged Out No longer eligible based on patient's age to complete this topic MENINGOCOCCAL VACCINE Aged Out No debra dustin eligible based on patient's age to complete this topic
--- OUTSIDE RECORDS SUMMARY | 2024-08-27 14:38 | XMS_ITS | Referral Summary ---
Author Organization [facility] Address [address] [place] [address] Care Team Providers Care Astronautical Engineer Name Role Phone Unavailable Primary Care Provider Unavailabl e Source Comments [facility] [employer],non-owned Affiliates and Associated Physician Practices is amultiple site organization consisting of ambulatory clinics and hospital sitesin [place], [place], [place] and [place]. This disclosure is being madepursuant to the Care Everywhere program and may not contain all information available regarding this patient. Last updated 18.[facility] Allergies No known active allergies Medications * [...] Mass Index - - Plan of Treatment Not on file
--- OUTSIDE RECORDS SUMMARY | 2024-08-27 14:38 | XMS_ITS | Clinical Summary ---
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 Gender Identity Not on file Sexual Orientation Not on file Plan of Treatment Health Maintenance Due Date Last Done Comments Hepatitis C Virus (HCV) Screening 1981 TdaP Immunization 1981 Hepatitis B Immunization (1 of 3 - 19+ 3-dose series) 2000 Influenza Immunization (#1) 2024 SARS-COV-2 Immunization ( - 2023-25 season) 2024 Respiratory Syncytial Virus (RSV) Immunization (Adult) (1 - 1-dose 75+ series) 2056 DTaP/Tdap/Td Immunization Discontinued 1995, 04/05/1987, 07/12/1983, Additional history exists Meningococcal Immunization (ACWY) Aged Out No longer eligible based on patient's age to complete this topic Pneumococcal Immunization Combined Aged Out No longer eligible based on patient's age to complete this topic Rotavirus Immunization Aged Out No lo nger eligible based on patient's age to complete this topic
== END 2024-08-27 14:33 | disposition home or self-care (01) ==
PROVIDERS: PCP Family Medicine; Visit Provider Neurological Surgery
DX: M47.812 Spondylosis without myelopathy or radiculopathy, cervical region (principal)
CPT/HCPCS: 72156; A9577

== ENCOUNTER 2024-09-04 08:39 | Outpatient (CLI) | payer OTHER, SELFPAY ==
--- OUTSIDE RECORDS SUMMARY | 2024-09-04 08:53 | XMS_ITS | Patient Health Summary ---
Author Organization [facility] [email or web address] Address [address] [place] [address] Care Team Providers Care [place] Cutter Name Role Phone Unavailable Primary Care Provider Unavailabl e Note from [facility] [email or web address] [facility],non-owned Affiliates and Associated Physician Practices is amultiple site organization consisting of ambulatory clinics and hospital sitesin [place], [place], [place] and [place]. This disclosure is being madepursuant to the Care Everywhere program and may not contain all information available regarding this patient. Last updated 18.[facility] [email or web address] Allergies No known active allergies Medications * [...] Yellow, Dark Yellow 02/20/2014 4:45 PM CDT [facility] Clarity UA Clear 02/20/2014 4:45 PM CDT [facility] Specific [place] UA 1.023 1.005 - 1.030 02/20/2014 4:45 PM CDT [facility] pH UA 6.0 5.0 - 8.0 pH 02/20/2014 4:45 PM CDT [facility] Protein UA Negative Negative 02/20/2014 4:45 PM CDT [facility] Blood UA Negative Negative 02/20/2014 4:45 PM CDT [facility] Leukocyte UA Negative Negative 02/20/2014 4:45 PM CDT [facility] Nitrite UA Negative Negative 02/20/2014 4:45 PM CDT [facility] Glucose UA Negative Negative 02/20/2014 4:45 PM CDT [facility] Ketone UA Negative Negative 02/20/2014 4:45 PM CDT [facility] Bilirubin UA Negative Negative 02/20/2014 4:45 PM CDT [facility] Urobilinogen UA 0.2 0.1 - 1.0 EU/dL 02/20/2014 4:45 PM CDT [facility] Reflex Status Culture not indicated 02/20/2014 4:45 PM CDT [facility] Urine URINE SPECIMEN OBTAINED BY CLEAN CATCH PROCEDURE / Unknown 02/20/2014 4:21 PM CDT 02/20/2014 4:32 PM CDT Chacha Bernal PA-C LAB - URINALYSIS OR DERABLES [facility] [address] [place] [address] * CULTURE BLOOD (02/20/2014 3:10 PM CDT) Only the most recent of2 resultswithin the time period is included. Pathologist [facility] Culture No Growth SAMARA 02/26/2014 4:51 AM CDT [facility] Blood PERIPHERAL BLOOD / Unknown 02/20/2014 3:10 PM CDT 02/20/2014 3:14 PM CDT Chacha JAQUEZC LAB - MICROBIOLOGY ORDERABLES Performing Organization Address [facility] Co de Phone Number [facility] [address] [place] [address], [facility] * PT PTT PANEL (02/20/2014 3:02 PM CDT) Pathologist [facility] PT 10.0 9.4 - 11.2 sec 02/20/2014 3:33 PM CDT [facility] INR 0.95 0.9 - 1.1 02/20/2014 3:33 PM CDT [facility] PTT 28.1 24.0 - 32.0 sec 02/20/2014 3:33 PM CDT [facility] Blood BLOOD SPECIMEN / Unknown 02/20/2014 3:02 PM CDT 02/20/2014 3:10 PM CDT Narrative [facility] - 02/20/2014 3:33 PM CDT Conventional Anticoagulant Therapy INR Reference Ranges: 2.0-3.0 Intensive Anticoagulant Therapy INR Reference Ranges: 2.5-3.5 Chacha GAFFNEY-C LAB - COAGULATION O RDERABLES Performing Organization Address [facility] Co de Phone Number [facility] [address] [place] [address] * SED RATE WESTERGREN (02/20/2014 3:02 PM CDT) Pathologist [facility] Erythrocyte Sedimentation Rate Westergren 10 0 - 15 mm/hr 02/20/2014 4:07 PM CDT [facility] Blood BLOOD SPECIMEN / Unknown 02/20/2014 3:02 PM CDT 02/20/2014 3:10 PM CDT Chacha Bernal PA-C LAB - HEMATOLOGY OR DERABLES [facility] [address] [place] [address] * (ABNORMAL) CBC W AUTO DIFFERENTIAL (02/20/2014 [...] - 416 x10^9/L 02/20/2014 3:21 PM CDT [facility] RDW-CV 12.5 12.1 - 14.9 % 02/20/2014 3:21 PM CDT [facility] MPV 9.3(L) 9.4 - 12.9 fl 02/20/2014 3:21 PM CDT [facility] Neutrophils % 67.8 44.0 - 73.0 % 02/20/2014 3:21 PM CDT [facility] Lymphocytes % 21.6 20.0 - 43.0 [...] - 1 % 02/20/2014 3:21 PM CDT [facility] Neutrophil Absolute 6.29 2.01 - 7.14 x10^9/L 02/20/2014 3:21 PM CDT [facility] Lymphocytes Absolute 2.00 1.07 - 3.94 x10^9/L 02/20/2014 3:21 PM CDT [facility] Monocytes Absolute 0.71 0.26 - 1.07 x10^9/L 02/20/2014 3:21 PM CDT [facility] Eosinophils Absolute 0.20 0 - 0.47 x10^9/L 02/20/2014 3:21 PM CDT [facility] Basophils Absolute 0.04 0 - 0.08 x10^9/L 02/20/2014 3:21 PM CDT [facility] Immature Granulocytes Absolute 0.03 0.00 - 0.06 x10^9/L 02/20/2014 3:21 PM CDT [facility] Blood BLOOD SPECIMEN / Unknown 02/20/2014 3:02 PM CDT 02/20/2014 3:10 PM CDT Chacha Bernal PA-C LAB - HEMATOLOGY OR DERABLES [facility] [address] [place] [address] * COMPREHENSIVE METABOLIC PANEL (02/20/2014 3:02 PM CDT) Glucose 83 74 - 106 mg/dL 02/20/2014 3:30 PM CDT [facility] Sodium 137 136 - 145 mmol/L 02/20/2014 3:30 PM CDT [facility] Potassium 3.6 3.5 - 5.1 mmol/L 02/20/2014 3:30 PM CDT [facility] Chloride 104 98 - 107 mmol/L 02/20/2014 3:30 PM CDT [facility] CO2 28 22 - 31 mmol/L 02/20/2014 3:30 PM CDT [facility] Calcium 8.8 8.5 - 10.1 mg/dL 02/20/2014 3:30 PM CDT [facility] Anion Gap 5 5 - 15 mmol/L 02/20/2014 3:30 PM CDT [facility] BUN 16 7 - 21 mg/dL 02/20/2014 3:30 PM CDT [facility] Creatinine 0.69 0.50 - 1.30 mg/dL 02/20/2014 3:30 PM CDT [facility] eGFR by MDRD >60 >60 mL/min/1.7 3m2 02/20/2014 3:30 PM CDT [facility] eGFR by MDRD >60 >60 mL/min/1.7 3m2 02/20/2014 3:30 PM CDT [facility] Alkaline Phosphatase 104 38 - 126 U/L 02/20/2014 3:30 PM CDT [facility] ALT 37 12 - 78 U/L 02/20/2014 3:30 PM CDT [facility] AST 17 5 - 40 U/L 02/20/2014 3:30 PM CDT [facility] Protein Total 7.7 6.4 - 8.2 gm/dL 02/20/2014 3:30 PM CDT [facility] Albumin 3.9 3.4 - 5.0 gm/dL 02/20/2014 3:30 PM CDT [facility] Bilirubin Total 0.8 0.2 - 1.0 mg/dL 02/20/2014 3:30 PM CDT [facility] Blood BLOOD SPECIMEN / Unknown 02/20/2014 3:02 PM CDT 02/20/2014 3:10 PM CDT Chacha Bernal PA-C LAB - CHEMISTRY ORD ERABLES [facility] [address] [place] [address] * CXR - PA & LATERAL (02/20/2014 [...]
--- OUTSIDE RECORDS SUMMARY | 2024-09-04 08:53 | XMS_ITS | Clinical Summary ---
Author Organization [facility] Address [address] [place] [address] Care Team Providers Care Tower Operator Name Role Phone Unavailable Primary Care Provider Unavailabl e Source Comments [facility] [employer],non-owned Affiliates and Associated Physician Practices is amultiple site organization consisting of ambulatory clinics and hospital sitesin [place], [place], [place]. This disclosure is being madepursuant to the Care Everywhere program and may not contain all information available regarding this patient. Last updated 18.[facility] [employer] Allergies No known active allergies Medications * [...] of 3 - 19+ 3-dose series) 2000 COVID-19 VACCINE (1 - 2023-2 5 [...] on patient's age to complete this topic PNEUMOCOCCAL VACCINE Aged Out No long er eligible based on patient's age to complete this topic
--- OUTSIDE RECORDS SUMMARY | 2024-09-04 08:53 | XMS_ITS | Referral Summary ---
Author Organization [facility] Address [address] [place] [address] Care Team Providers Care Manager Library Name Role Phone Unavailable Primary Care Provider Unavailabl e Source Comments [facility] [employer],non-owned Affiliates and Associated Physician Practices is amultiple site organization consisting of ambulatory clinics and hospital sitesin [place], [place], [place] and [place]. This disclosure is being madepursuant to the Care Everywhere program and may not contain all information available regarding this patient. Last updated 18.[facility] [employer] Allergies No known active allergies Medications * [...]
--- OUTSIDE RECORDS SUMMARY | 2024-09-04 08:53 | XMS_ITS | Clinical Summary ---
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
--- NOTE | 2024-09-28 14:03 | P.SLEEP_ITS ---
Sleep Study Date of Study: 09/04/24 Ordering Provider: Apollo Mortensen MD Interpreting Physician: Fabi Nails MD Sleep Study Type: Split Polysomnogram Height: 1.65 m Weight: 79.379 kg Body Mass Index: 29.1 Neck Circumference (inches): 16.25 [place]: 11 Reason for Sleep Study Hypersomnolence, loud snoring and witnessed apneas * 12/08/2019 PSG @[facility]; overall AHI was 3.5 and his RDI was 7.6. He was not a candidate for treatment based on his RDI due to insurance rules. Patient's medical history includes depression and HTN. Patient did have anxiety prior to test and took Xanax prior to arrival to lab. Patient expressed interest in a MAD if needed. Sleep History Matt Heath Jr is a 43-year-old man with snoring and witnessed apneas. He had a sleep test that was borderline in 2019, see above, however he did not qualify for any treatment. He rarely awakens from sleep feeling short of breath. He frequently wakes at night with heartburn, belching or coughing.??He constantly snores, and it is always loud enough that others complain. He frequently has trouble sleeping when he has a cold. He occasionally wakes up gasping for breath during the night. He constantly has breathing problems at night. He frequently sweats excessively at night. He occasionally notices his heart pounding or beating irregularly during the night. He rarely falls asleep during the day. He rarely falls asleep involuntarily, rarely falls asleep while driving. He never experiences loss of muscle tone with strong emotion. He frequently has daytime difficulty at work due to excessive sleepiness. 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 He never feels paralyzed on waking or falling asleep. He rarely experiences vivid dreams upon waking or falling asleep. He never feels afraid of going to sleep. He occasionally has nightmares. He occasionally recalls his dreams. He constantly has thoughts racing through his mind. He frequently feels sad or depressed. He frequently feels anxiety. He frequently notices parts of his body jerk. He frequently kicks during the night. He f requently feels crawling or aching feelings in his legs. He frequently feels leg pain at night. He occasionally has morning jaw pain, and occasionally grinds his teeth at night. He constantly feels bothered by pain during the day, occasionally awakened by pain during the night. He constantly wakes up feeling stiff in the morning, and he constantly wakes feeling sore or achy. He constantly awakens with pain in his neck, spine, or joints. His throat feels sore when he wakes, like he is pulling on his tonsils during the night. He has difficulty swallowing on waking. Normal bedtime is between 11:00 p.m. and 12 midnight, falling asleep within 30 minutes sleep, sometimes up to an hour, waking 3 times at night, staying awake for 10-15 minutes, long enough to go to the bathroom or get a snack. Wake time is between 6:45-7 a.m.. He typically gets between 4 to 7 hours of sleep per night. He does not take naps in the day. He is drowsy for 2 hours after waking. Habits:??Tobacco: Quit tobacco a year ago, still vapes Caffeine:1 cup per day Alcohol:none Recreational substances: none PMFSH Past Medical History Medical History Left buttock abscess Mass of buttock Cervical spondylosis with myelopathy and radiculopathy Anxious depression Abnormal NCS (nerve conduction studies) Tick bite Abnormal MRI, cervical spine Nodule of finger of right hand Left elbow pain Pain of hand Tobacco abuse Exposure to COVID-19 virus Family History Family History Father Family history of coronary artery disease Acute myocardial infarction Bone spur Cancer Bladder Grandparent Acute myocardial infarction Mother Stenosis of lower extremity artery Hx of cholecystectomy Cerebrovascular accident Sibling Heart disease Obesity Head trauma Anxiety Other Family history of malignant neoplasm Social History Social History Smoking packs per day: 0.5 Smoking cigarettes per day: 10.0 Smoking status: Current every day smoker Tobacco type: cigarettes and e-cigarettes/vaping Second hand tobacco smoke exposure: Yes Alcohol intake: former Substance use: current Substance use type: marijuana Other substance usage details: smoke Do You Feel Safe in your Home?: Yes Lack of Transportation: No Lack of Food: Never True Current Housing: I Have Housing Concerned About Future Housing: No Difficulty Paying Gas/Electric Bills: No Difficulty Paying for Meds: No Currently Unemployed: No Education: High School Diploma/GED Difficulty w/ Childcare or Family Care: No Living arrangements: with family Occupation/Education: occupation 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 Gender identity (if verbalized by the patient): Male Medications Home Medications ?Medication ?Instructions ?Recorded ?Confirmed ?Type testosterone cypionate 200 mg/mL 100 mg (0.5 mL) IM .bi-weekly #1 mL 07/02/24 08/05/24 Rx intramuscular oil cyclobenzaprine 10 mg tablet See Rx Instructions .Route 07/07/24 08/05/24 Rx .COMPLEX #60 tabs escitalopram oxalate 10 mg tablet 10 mg PO DAILY #90 tabs 07/07/24 08/05/24 Rx (Lexapro) losartan 50 mg tablet 50 mg PO DAILY #90 tabs 07/07/24 08/05/24 Rx alprazolam 0.5 mg tablet 0.5 mg PO BID anxiety #60 tabs 09/05/24 Rx Sleep Procedure A split night polysomnogram using the VisConPro multi-channel system recorded the standard physiologic parameters including EEG, EOG, submentalis EMG, anterior tibialis EMG, EKG, body position, nasal and oral airflow using nasal pressure sensor and thermistor. Respiratory parameters of chest and abdominal movements were recorded with Respiratory Inductance Plethysmography belts. Oxygen saturation was recorded by pulse oximetry. Video monitoring was also performed. Sleep stages, periodic limb movements, and EEG arousals were scored in 30 second epochs according to the criteria of the AASM Scoring Manual. The Apnea-Hypopnea Index was calculated using CMS guidelines for definition of hypopnea while scoring respiratory events. Patient did have anxiety prior to test and took Xanax prior to arrival to lab. Patient expressed interest in a MAD if needed. After the baseline portion the patient met criteria for a titration with an AHI of 14.8 and desaturation to 81%, without supine sleep and without REM on the baseline. He started using CPAP at 5 cm with a medium ResMed AirFit N30i nasal mask, later switched to an F30i fullface mask due to an air leak from his mouth. He has a full zhao. CPAP was used at pressures 5 cm, 7 cm, 9 cm, 11 cm, 13 cm, 15 cm, 17 cm, and the final pressure was 19 cm in supine REM. At CPAP 19 cm, he spent 40.5 minutes in bed, 3 minutes awake, 23.5 minutes in non-REM and 14 minutes in REM. Sleep efficiency was 92.6%. The lowest saturation was 94%.He had few central apneas emerged during the titration. Sleep Architecture During the diagnostic portion of the study, the total recording time was 145.9 minutes. The total sleep time was 129.5 minutes. Sleep latency was 4.9 minutes. He had no REM on the baseline. Sleep Efficiency was 88.8%. The patient had 9 awakenings for an awakening index of 4.2. Wake after sleep onset time was 11.5 minutes. The patient spent 22.0 minutes, 17.0% of total sleep time in Stage N1. The patient spent 97.0 minutes, 74.9% in Stage N2. The patient spent 10.5 minutes, 8.1% in Stage N3. The patient spent no time in Stage REM sleep. At 12:08:37 AM the patient was placed on PAP treatment and was titrated at pressures ranging from 5 cm/H20 19* cm/H20. During the treatment portion of the study, the total recording time was 374.7 minutes. The total sleep time was 345 .5 minutes. Sleep latency was 0.5 minutes. REM latency was 53.5 minutes. Sleep Efficiency was 92.2%. Wake after Sleep Onset time was 29.0 minutes. The patient spent 61.5 minutes, 17.8% of total sleep time in Stage N1. The patient spent 177.5 minutes, 51.4% in Stage N2. The patient spent no time in Stage N3. The patient spent 106.5 minutes, 30.8% in Stage REM. Respiratory Analysis During the diagnostic portion of the study, the patient had 27 hypopneas, 5 obstructive apneas, no mixed of central apneas for an overall Apnea Hypopnea Index of 14.8 events per hour. He had no REM on the baseline. The NREM Apnea Hypopnea Index was 14.8. The patient had a Central Apnea Hypopnea Index of 0. There were no Respiratory Effort Related Arousals. The Respiratory Disturbance Index is 21.8 events per hour. There was no evidence of Kike-Cordero Respirations. During the treatment portion of the study, the patient had 78 hypopneas, 23 obstructive apneas, 1 mixed apnea, and 4 central apneas for an overall Apnea Hypopnea Index of 18.4 events per hour. The REM Apnea Hypopnea Index was 10.1. The NREM Apnea Hypopnea Index was 22.1. The patient had a Central Apnea Hypopnea Index of 0.7. There were no Respiratory Effort Related Arousals. The Respiratory Disturbance Index is 22.4 events per hour. There was no evidence of Kike- Cordero Respirations. Arousals During the diagnostic portion of the study, there were a total of 59 arousals for an arousal index of 27.3. There were 14 respiratory arousals for an index of 6.5. There were no periodic limb movement arousals. There were 8 isolated limb movement arousals for an index of 3.7. There were 37 spontaneous arousals for an index of 17.1. During the treatment portion of the study, there were a total of 163 arousals for an index of 28.3. There were 48 respiratory arousals for an index of 8.3. There were 3 periodic limb movement arousals for an index of 0.5. There were 8 isolated limb movement arousals for an index of 1.4. There were 104 spontaneous arousals for an index of 18.1. Periodic Limb Movements During the diagnostic portion of the study, the patient had 17 isolated limb movements with an index of 7.9. The patient had no periodic limb movements. The patient had a total of 17 limb movements with a total limb movement index of 7.9. During the treatment portion of the study, the patient had 11 isolated limb movements with an index of 1.9. The patient had 4 periodic limb movements with an index of 0.7. The patient had a total of 15 limb movements with a total limb movement index of 2.6. Oximetry Data During the diagnostic portion of the study, the patient had an average oxygen saturation of 95% in wake with a minimum oxygen saturation of 84% and a maximum oxygen saturation of 98%. The patient had an average oxygen saturation of 93% in sleep with a minimum oxygen saturation of 81% and a maximum oxygen saturation of 98%. The patient had 69 oxygen desaturations resulting in an Oxygen Desaturation Index of 32.0. The patient spent 1.5 minutes, 1.1% of total sleep time with an oxygen saturation less than 88%. During the treatment portion of the study, the patient had an average oxygen sat uration of 96% in wake with a minimum oxygen saturation of 78% and a maximum oxygen saturation of 99%. The patient had an average oxygen saturation of 96% in sleep with a minimum oxygen saturation of 78% and a maximum oxygen saturation of 99%. The patient had 132 oxygen desaturations resulting in an Oxygen Desaturation Index of 22.9. The patient spent 7.5 minutes, 2% of total sleep time with an oxygen saturation less than 88%. Snoring Profile Snoring was mild to loud, and this was eliminated at the final CPAP 19 cm water pressure. Cardiac Profile During the diagnostic portion of the study, the EKG showed normal sinus rhythm. The average pulse rate was 87 bpm. The minimum pulse rate was 75 bpm. The maximum pulse rate was 102 bpm. No arrhythmias noted. During the treatment portion of the study, the EKG showed normal sinus rhythm. The average pulse rate was 76 bpm. The minimum pulse rate was 49 bpm. The maximum pulse rate was 100 bpm. No arrhythmias noted. EEG Profile EEG was unremarkable, no evidence of seizures. Assessment and Plan Assessment and Plan (1) Obstructive sleep apnea: Code(s): G47.33 - Obstructive sleep apnea (adult) (pediatric) Status: Acute Assessment and Plan: This split night sleep study on 09/04/2024 shows moderate obstructive sleep apnea, apnea-hypopnea index is 14.8 on the baseline, desaturation 81% with loud snoring. The patient had no REM sleep or supine sleep on the baseline, so his AHI unestimated the severity of his condition. He was successfully treated using CPAP 19 cm with a medium ResMed AirFit F 30 I fullface mask and heated humidity, had supine REM at this setting. The patient had a residual apnea- hypopnea index of 4.8 a during supine REM. At CPAP 19 cm, he spent 40.5 minutes in bed, 3 minutes awake, 23.5 minutes in non-REM and 14 minutes in REM. Sleep efficiency was 92.6%. The lowest saturation was 94%. The patient should be prescribed this ResMed equipment as well as tubing, filters and reservoir. This should be used with all episodes of sleep. Compliance should be reviewed within 31-90 days of starting therapy for usage greater than 4 hours per night greater than 70% of the nights. The patient should be asked about symptoms such as excessive daytime sleepiness, quality of sleep, decreased nocturia, increased mental functioning such as memory, mood, and concentration. He told the medical laboratory technologist that he was interested in using a mandibular advancement device, MAD, if he is a candidate. He should attempt to use CPAP which is the gold standard treatment. CPAP 19 is a significant pressure, higher than average. He may have some challenges using this pressure. He may be a candidate for a mandibular advancement device, and may be a candidate for using this device in combination with PAP therapy. This treatment strategy can be explored in follow up visits. I would recommend using CPAP 19 cm now to manage his HERNAN, and see how he responds to therapy. MAD could be part of his plan if he does not tolerate PAP treatment. He describes having frequent uncomfortable feelings in his legs before bed. This is consistent with restless legs syndrome. Ferritin level is indicated to exclude iron deficiency anemia as a contributing factor. Ferritin should be 75 ng/mL or greater. If ferritin is below this, iron supplementation should be given to achieve ferritin of 75 ng/mL. There are nonpharmacologic methods to treat limb movements including daily exercise, stretching calf muscles before bed, avoiding excessive amounts of caffeine and alcohol, vitamin B supplementation, magnesium lotion massaged into legs before bed, and use of a weighted blanket. Data The data obtained during this sleep study is adequate for interpretation. Certification This sleep study has been reviewed by a board certified sleep medicine physician.
[2024-09-28 14:37] VITALS: BMI 29.1
== END 2024-09-05 07:08 | disposition home or self-care (01) ==
LOC: ANHCSM 08:43
PROVIDERS: PCP Family Medicine; Visit Provider Family Medicine
DX: G47.30 Sleep apnea, unspecified (principal); G47.33 Obstructive sleep apnea (adult) (pediatric)
CPT/HCPCS: 95811

== ENCOUNTER 2024-11-03 09:46 | Outpatient (CLI) | payer OTHER, SELFPAY ==
--- NOTE | ~2024-11-03 | XR_ITS ---
[id number] Ordering provider: Rigoberto Johnson, History: . AP - Lateral F/U CERVICAL SURGERY 10/02/24 . Comparison: October 04, 2020 FINDINGS: VERTEBRAL BODIES: Normal height and alignment. No visible fracture or subluxation. The dens is intact . Postoperative changes at the level of C4-C5. DISK SPACES: Disc spacers seen at the level of C4-C5. Well maintained. PARASPINOUS SOFT TISSUES: No prevertebral soft tissue swelling. IMPRESSION: No acute osseous abnormality cervical spine. Postoperative changes at the level of C4-C5. Reviewed, dictated and finalized at location A.
--- OUTSIDE RECORDS SUMMARY | 2024-11-03 10:58 | XMS_ITS | Clinical Summary ---
Author Organization [facility] Address [address] [place] [address] Care Team Providers Care Associate Professor Of Library Science Name Role Phone Unavailable Primary Care Provider Unavailabl e Source Comments [facility],non-owned Affiliates and Associated Physician Practices is amultiple site organization consisting of ambulatory clinics and hospital sitesin [place], [place], [place] and [place]. This disclosure is being madepursuant to the Care Everywhere program and may not contain all information available regarding this patient. Last updated 18.[facility] Allergies No known active allergies Medications * Be aware that medications may not be up to date on this document. Alwaysverify current medications with the patient. methylPREDNISolo ne (MEDROL DOSEPAK) 4 MG tablet Take by mouth as directed. 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 Gender Identity Not on file Sexual Orientation [...] VACCINE (1 - 2023-2 5 season) 2024 DEPRESSION SCREENING 07/15/2024 INFLUENZA VACCINE (Season Ended) 2025 ZOSTER VACCINE (1 of 2) 12/30/2031 HIB VACCINE Aged Out No longer eligi ble based on patient's age to complete this topic HPV VACCINE Aged Out No longer eligi ble based on patient's age to complete this topic MENINGOCOCCAL (Group B) VACC INE SHARED DECISION-MAKING Aged Out No longer eligibl e based on patient's age to complete this topic MENINGOCOCCAL GROUPS A/C/Y/W VACCINE Aged Out No longer eligible b ased on patient's age to complete this topic PNEUMOCOCCAL VACCINE Aged Out No long er eligible based on patient's age to complete this topic Insurance
--- OUTSIDE RECORDS SUMMARY | 2024-11-03 10:58 | XMS_ITS | Clinical Summary ---
Author Organization 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
== END 2024-11-03 09:47 | disposition home or self-care (01) ==
LOC: ANHIMG 09:48
PROVIDERS: PCP Family Medicine; Visit Provider Neurological Surgery
DX: Z98.1 Arthrodesis status (principal)
CPT/HCPCS: 72040

== ENCOUNTER 2024-12-21 08:58 | Outpatient (CLI) | payer OTHER, SELFPAY ==
--- NOTE | ~2024-12-21 | XR_ITS ---
Cervical Spine: AP, oblique, lateral, open-mouth views Clinical History: Pain Findings: The normal lordotic curve is maintained. No fracture or subluxation. There is anterior inte rbody fusion from C4 to C5. Remaining disc spaces are relatively well-preserved.. Pre-vertebral soft tissues are unremarkable. Impression: Anterior and interbody fusion from C4 to C5. Reviewed, dictated and finalized at location . Impression: Anterior and interbody fusion from C4 to C5.
--- OUTSIDE RECORDS SUMMARY | 2024-12-21 09:33 | XMS_ITS | Clinical Summary ---
Author Organization [facility] Address [address] [place] [address] Care Team Providers Care Product Management Intern Name Role Phone Unavailable Primary Care Provider Unavailabl e Source Comments [facility],non-owned Affiliates and Associated Physician Practices is amultiple site organization consisting of ambulatory clinics and hospital sitesin [place], [place], [place] and [place]. This disclosure is being madepursuant to the Care Everywhere program and may not contain all information available regarding this patient. 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
--- OUTSIDE RECORDS SUMMARY | 2024-12-21 09:33 | XMS_ITS | Clinical Summary ---
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
== END 2024-12-21 08:59 | disposition home or self-care (01) ==
PROVIDERS: PCP Family Medicine; Visit Provider Neurological Surgery
DX: M54.2 Cervicalgia (principal); Z98.1 Arthrodesis status
CPT/HCPCS: 72052

== ENCOUNTER 2025-01-01 14:30 | Outpatient (RCR) | payer OTHER, SELFPAY ==
--- NOTE | 2024-12-09 11:02 | OPREHPOC ---
Outpatient Therapy Plan of Care This is a Multidisciplinary Plan of Care that may contain components documented by all disciplines (PT, OT, and ST.) PT Problem 1 PT Problem #1 Knowledge Deficit PT Goal 1 Goal / Goal Update 1* independent with HEP 2* use of correct body mechanics and posture with lifting Target Visit 8 PT Problem 2 PT Problem #2 Pain PT Goal 1 Goal / Goal Update 1* pt report pain rating at worst of neck at 4/10 with increase activity level 2* pt report sleeping 4 hours at time Target Visit 8 PT Problem 3 PT Problem #3 Impaired Range of Motion PT Goal 1 Goal / Goal Update * increase cervical rotation R/L to improve ability to drive and do home & work activities: active in sitting 1* rotation to R 45' 2* rotation to L 45' 3* flexion to 60' Target Visit 8 PT Problem 4 PT Problem #4 Impaired Strength PT Goal 1 Goal / Goal Update improve weinsozf-gtctuyhh-hpxbtizi strength, to stabilize spine and improve posture 1* pt stand with correct shoulder/scapular strength during PT session and with activity 2* pt perform bilateral UE box lift, waist/floor height 25# x 3 reps with correct technique Target Visit 8
--- NOTE | 2024-12-09 11:02 | PTOPEVAL1 ---
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 some troubles with driving- bouncing in the seat and turning head with driving; sleeping is less than normal he has not been doing any exercises for his neck or fitness- other than walking Reported Pain Level Pain Score Self Report Additional Pain Score Comments pain range in the past week 0-7/10; increase pain: leaning down to look under his bed; turning head with driving, bouncing in the car with driving decrease pain: rest, lie on back, ice, tylenol report with sleeping awaken about every 2-3 hours due to pain does have history of migraines and headaches Assessment PT Clinical Summary Matt is s/p cervical discectomy and fusion on 10-02-24. He has returned to work and has restriction for 25# lifting and is doing shorter work day of 5-6 hours. Neck Index self rating of 24% limitation in activity level. With the evaluation: decreased cervical ROM with tightness and pain reported; rounded shoulder posture and slight side bend of neck to the R; bilateral shoulder AROM is WNL and no pain reported. Skilled PT services are indicated for modalities to decrease pain and spasms; therapeutic exercises to increase cervical ROM and strength, with education for HEP, body mechanics and posture, to return to his full work duties and home tasks. Plan of Care Interventions Electrical Stimulation,Hot Pack/Cold Pack,Manual Therapy,Neuro Re-education,Patient/Caregiver Education,Therapeutic Activities,Therapeutic Exercise,Ultrasound,Other PT Services Indicated Yes Treatment Frequency and 1-2x/wk for 8 visits Duration These treatments will address the objective and functional deficits as defined above. The patient will be advanced safely and appropriately in order for the patient to progress towards his/her prior level of function. Additional exercises will be introduced and as well as a comprehensive home exercise program upon discharge, if needed, ?to ensure carryover of functional gains achieved in the clinic. This treatment plan has been reviewed and agreement upon by the patient.
--- NOTE | 2024-12-11 15:04 | PCPTNOTE ---
pt did not show for today's appt.
--- NOTE | 2024-12-23 15:50 | PCPTNOTE ---
Discussed pt with Ana Hodge BUSINESS WRITER and Kate Cornejo PT--add dry needling to pt's plan of treatment due decrease muscle spasms and tightness.
--- NOTE | 2025-01-01 15:25 | OPREHPOC ---
Outpatient Therapy Plan of Care This is a Multidisciplinary Plan of Care that may contain components documented by all disciplines (PT, OT, and ST.) PT Problem 1 PT Problem #1 Knowledge Deficit PT Goal 1 Goal / Goal Update 1* independent with HEP 2* use of correct body mechanics and posture with lifting 01-01-25 d/c goals met Target Visit 8 Progress Met PT Problem 2 PT Problem #2 Pain PT Goal 1 Goal / Goal Update 1* pt report pain rating at worst of neck at 4/10 with increase activity level 2* pt report sleeping 4 hours at time 01-01-25 d/c goals met Target Visit 8 Progress Met PT Problem 3 PT Problem #3 Impaired Range of Motion PT Goal 1 Goal / Goal Update * increase cervical rotation R/L to improve ability to drive and do home & work activities: active in sitting 1* rotation to R 45' 2* rotation to L 45' 3* flexion to 60' 01-01-25 d/c goals met Target Visit 8 Progress Met PT Problem 4 PT Problem #4 Impaired Strength PT Goal 1 Goal / Goal Update improve lhusfdmk-[id number] strength, to stabilize spine and improve posture 1* pt stand with correct shoulder/scapular strength during PT session and with activity 2* pt perform bilateral UE box lift, waist/floor height 25# x 3 reps with correct technique 25 d/c goals met Target Visit 8 Progress Met
--- NOTE | 2025-01-01 15:25 | PTOPDC ---
Assessment and note entered by Celeste Falcon, PT Assessment Status Discharge ICD-10 Condition Codes (PT) Cervicalgia M54.2,Weakness R53.1,Encounter for other orthopedic aftercare Z47.89 Onset 10-02-24 Subjective Information saw last week, released from his care and to return to full work duties; still have some numbness in L hand, but it is less than it was; doing the exercises and being careful with lifting Reported Pain Level Pain Score Self Report Additional Pain Score Comments pain range in the past week: 1-4/10, numbness and tingling in L 3,4,5 fingers- intensity varies; increase pain: driving, work and lifting more decrease pain: resting, theracane massage tool, change position sleeping is an issue due to CPAP and have to sleep on back and use to sleep on his sides. sleeping 2 -4 hours at time Assessment PT Clinical Summary Matt has received 7 PT sessions. He has improved in all areas, with today's reassessment: pain rating of 1-4/10 with numbness into L 3,4,5 fingers that varies in intensity; reported sleeping tolerance of 2-4 hours; self assessment with Neck Index rating of 10% limitation in activity level; good posture of shoulders and neck; increase cervical rotation to R and L, and cervical active motions without pain ; bilateral UE 25# box lift waist/floor height with good mechanics and education completed for HEP, body mechanics, posture, pain management. The goals were achieved. Discharge PT. He is to continue with HEP, increased awareness with posture and body mechanics. Plan of Care PT Services Indicated No
== END 2025-01-04 11:27 | disposition home or self-care (01) ==
LOC: ANHPT 14:30
PROVIDERS: PCP Family Medicine; Visit Provider Neurological Surgery
DX: M54.2 Cervicalgia (principal); R53.1 Weakness; Z98.1 Arthrodesis status
CPT/HCPCS: 20560; 97110; 97140; 97161; 97530

== ENCOUNTER 2025-02-10 16:24 | Outpatient (CLI) | payer OTHER, SELFPAY ==
--- OUTSIDE RECORDS SUMMARY | 2025-02-10 16:26 | XMS_ITS | Clinical Summary ---
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
--- OUTSIDE RECORDS SUMMARY | 2025-02-10 16:26 | XMS_ITS | Clinical Summary ---
Author Organization [facility] Address [address] [place] [address] Care Team Providers Care Shipping Associate Name Role Phone Unavailable Primary Care Provider Unavailabl e Source Comments [facility] [employer],non-owned Affiliates and Associated Physician Practices is amultiple site organization consisting of ambulatory clinics and hospital sitesin [place], [place], [place] and [place]. This disclosure is being madepursuant to the Care Everywhere program and may not contain all information available regarding this patient. Last updated 18.[facility] 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
[2025-02-10 17:34] LABS: Hematocrit 54.0 % (42.0-52.0); Hemoglobin 18.6 g/dL (14.0-18.0); Mean Corpuscular HGB Conc 34.4 g/dl (32-36); Mean Corpuscular Hemoglobin 29.1 pg (26-34); Mean Corpuscular Volume 84.4 fl (80-100); Platelet Count Result 241 k/mm3 (150-375); Red Blood Count 6.40 M/mm3 (4.6-6.20); White Blood Count 10.4 K/mm3 (4.5-10.0)
[2025-02-10 17:56] LABS: Anion Gap 7 mmol/L (4-12); Blood Urea Nitrogen 11 mg/dL (9-20); Calcium 9.3 mg/dL (8.4-10.2); Carbon Dioxide 28 mmol/L (22-30); Chloride 104 mmol/L (98-107); Estimated Glomerular Filt Rate > 60; Glucose 79 mg/dL (65-110); Iron 136 ug/dL (49-181); Potassium 4.2 mmol/L (3.4-5.0); Sodium 139 mmol/L (137-145)
[2025-02-10 18:05] LABS: Percent Iron Saturation 37 % (20-50)
[2025-02-10 18:29] LABS: Prostate Specific Antigen 0.7 ng/mL (< OR = 4.0); Thyroid Stimulating Hormone 1.080 uIU/mL (0.465-4.680)
[2025-02-10 18:31] LABS: Ferritin 17.70 ng/mL (17.9-464)
[2025-02-10 18:49] LABS: Vitamin B12 353.0 pg/mL (239-931)
[2025-02-15 23:07] LABS: Free Testosterone (Direct) 17.0 pg/mL (6.8-21.5)
== END 2025-02-10 16:25 | disposition home or self-care (01) ==
LOC: ANHLAB 16:24
PROVIDERS: PCP Family Medicine; Visit Provider Family Medicine
DX: R71.8 Other abnormality of red blood cells (principal); F41.0 Panic disorder [episodic paroxysmal anxiety]; I10 Essential (primary) hypertension; Z12.5 Encounter for screening for malignant neoplasm of prostate
CPT/HCPCS: 36415; 80048; 82607; 82728; 83540; 83550; 84153; 84402; 84403; 84443; 85027; G0103

== ENCOUNTER 2025-03-17 16:36 | Outpatient (CLI) | payer OTHER, SELFPAY ==
[2025-03-17 16:55] LABS: Hematocrit 49.1 % (42.0-52.0); Hemoglobin 17.0 g/dL (14.0-18.0); Mean Corpuscular HGB Conc 34.6 g/dl (32-36); Mean Corpuscular Hemoglobin 29.3 pg (26-34); Mean Corpuscular Volume 84.7 fl (80-100); Platelet Count Result 225 k/mm3 (150-375); Red Blood Count 5.80 M/mm3 (4.6-6.20); White Blood Count 9.0 K/mm3 (4.5-10.0)
--- OUTSIDE RECORDS SUMMARY | 2025-03-17 17:15 | XMS_ITS | Clinical Summary ---
Author Organization [facility] Address [address] [place] [address] Care Team Providers Care Wire Chief Name Role Phone Unavailable Primary Care Provider Unavailabl e Source Comments [facility] [employer],non-owned Affiliates and Associated Physician Practices is amultiple site organization consisting of ambulatory clinics and hospital sitesin [place], [place], [place] and [place]. This disclosure is being madepursuant to the Care Everywhere program and may not contain all information available regarding this patient. 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
--- OUTSIDE RECORDS SUMMARY | 2025-03-17 17:15 | XMS_ITS | Clinical Summary ---
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
[2025-03-17 17:22] LABS: Iron 110 ug/dL (49-181)
[2025-03-17 17:33] LABS: Percent Iron Saturation 34 % (20-50)
[2025-03-17 17:59] LABS: Ferritin 41.90 ng/mL (17.9-464)
[2025-03-31 03:07] LABS: Free Testosterone (Direct) 7.2 pg/mL (6.8-21.5)
== END 2025-03-17 16:37 | disposition home or self-care (01) ==
LOC: ANHLAB 16:38
PROVIDERS: PCP Family Medicine; Visit Provider Nurse Practitioner Family
DX: R71.8 Other abnormality of red blood cells (principal)
CPT/HCPCS: 36415; 82728; 83540; 83550; 84402; 84403; 85027

== ENCOUNTER 2025-04-26 10:01 | Outpatient (CLI) | payer OTHER, SELFPAY ==
--- NOTE | ~2025-04-26 | XR_ITS ---
EXAMINATION: XR hand RT min 3V, 04/26/2025 10:20 CDT HISTORY: M79.644 - Pain in right finger(s) COMPARISON: No comparisons available. Findings: No acute fracture or malalignment. No significant degenerative changes. Soft tissues unremarkable. Impression: No acute fracture or malalignment. Reviewed, dictated and finalized at location P. Impression: No acute fracture or malalignment.
--- OUTSIDE RECORDS SUMMARY | 2025-04-26 11:00 | XMS_ITS | Clinical Summary ---
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
--- OUTSIDE RECORDS SUMMARY | 2025-04-26 11:00 | XMS_ITS | Clinical Summary ---
Author Organization [facility] Address [address] [place] [address] Care Team Providers Care Lap Polisher Name Role Phone Unavailable Primary Care Provider Unavailabl e Source Comments [facility] [employer],non-owned Affiliates and Associated Physician Practices is amultiple site organization consisting of ambulatory clinics and hospital sitesin [place], [place], [place] and [place]. This disclosure is being madepursuant to the Care Everywhere program and may not contain all information available regarding this patient. 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
== END 2025-04-26 10:02 | disposition home or self-care (01) ==
PROVIDERS: PCP Family Medicine; Visit Provider Plastic Surgery
DX: M79.644 Pain in right finger(s) (principal)
CPT/HCPCS: 73130